=== PATIENT | female | born 1935 | race Caucasian/White ===

== ENCOUNTER → 2021-10-06 18:00 | Outpatient (REF) | payer MEDICARE, BC, SELFPAY ==
--- NOTE | 2021-10-06 18:08 | CA_ITS ---
Transthoracic Echocardiogram Patient (Last, First, Middle): Sally Wills, Gender: Female Date of : 1935 Age: 86 Procedure Date: 10/06/2021 Procedure Type: Transthoracic Echocardiogram Location: [place] Height: 154.94 cm Weight: 68.04 kg BSA: 1.67 m2 Heart Rate: bpm BP: 150 / 80 mmHg Rat Poisoner: VON Referring MD: Ting BARRON [facility]- Stock Replenisher: Mauro Arteaga MD Symptoms: HYPOXEMIA Study Quality: Adequate ECG Rhythm: Sinus Conclusions: - 1. Hyperdynamic LV systolic function with LVEF of greater than 70% with impaired relaxation filling pattern suggestion of elevated filling pressures 2. Mildly dilated left atrium 3. Uicq-fm-nsuqxidq aortic stenosis 4. Vifi-fc-kowvogwe elevation of right ventricular systolic pressure 5. No gross pericardial effusion Findings Left Ventricle Normal left ventricular cavity size. There is normal left ventricular wall thickness. The left ventricular systolic function is hyperdynamic. The visually estimated ejection fraction is >70%. Spectral Doppler is indicative of an impaired relaxation filling pattern. Elevated filling pressures. E/E prime ratio is >15, consistent with elevated filling pressures. Right Ventricle Normal right ventricular cavity size and systolic function. Atria The left atrium is mildly dilated. There is no evidence of interatrial shunt. The right atrium is normal in size. Aortic Valve There is mild calcification of the aortic valve. There is mild thickening of the aortic valve. There is mild to moderate aortic valve stenosis. The mean gradient is 20 mmHg. The aortic valve area is 1.62 cm2. There is trace (trivial) aortic valve regurgitation. Mitral Valve There is mild anterior and posterior mitral leaflet thickening. There is trace mitral valve regurgitation. There is no mitral valve stenosis. Pulmonic Valve The pulmonic valve is likely normal. There is trace pulmonic valve regurgitation. Tricuspid Valve There is mild tricuspid valve regurgitation. Normal right atrial pressure. Mild to moderate pulmonary hypertension is present. Great Vessels All visible segments of the aorta are normal in size. The pulmonary artery was not well visualized. Small plaque is seen in the sino tubular ridge. Venous The inferior vena cava is normal in size and collapses greater than 50% with inspiration. Pericardium/Pleural There is no evidence of pericardial effusion. Prior Study Comparison No prior study available for comparison. Measurements 2D Linear Measurements IVSd: 1.06 0.6-0.9/0.6-1.0 cm LVIDd: 4.22 3.9-5.3/4.2-5.9 cm LVIDd Index: 2.53 2.4-3.2/2.2-3.1 cm/m2 LVIDs: 2.10 2.0-3.6 cm LVPWd: 0.79 0.7-1.1 cm LA Diam: 3.30 2.7-3.8/3.0-4.0 cm LAIDs Index: 1.98 1.5-2.3 cm/m2 LV Mass: 154.78 67-162/88-224 g LV Mass Index: 92.68 43-95/49-115 g/m2 LVOT Diam: 2.30 3.0+(-)1.3 cm 2D Systolic Function EF 4C: 71.50 >55% EF 2C: 70.80 >55% EF BiP: 71.30 >55% Mitral Valve MV Pk E: 1.04 MV PK A: 1.04 MV Decel Time: 206.00 E/A: 1.00 E'Lateral: 6.20 E'Medial: 4.24 E/E' Med: 24.50 E/E' Lat: 16.80 PHT: 60.00 MVA PHT: 3.67 Decel [place]: 5.06 Aortic Valve AoV Pk Bari: 3.11 AoV Mn Bari: 2.11 AoV VTI: 0.73 AoV Pk Grad: 39.00 Aov Mn Grad: 20.00 MARIBEL Cont.VTI: 1.62 LVOT LVOT Pk Bari: 1.12 LVOT Mn Bari: 0.79 LVOT VTI: 0.28 LVOT Pk Grad: 5.00 LVOT Mn Grad: 3.00 LVOT Diam: 2.30 LVOT Area: 4.15 Diastolic Function MV Pk E: 1.04 MV Pk A: 1.04 E/A: 1.00 E'Medial: 4.24 E/E' Med: 24.50 E' Laterial: 6.20 E/E' Lat: 16.80 Right Ventricle TAPSE (mm): 19.60 TVS' Bari: 2.90 Tricuspid Valve TR Pk Bari: 3.28 TR Pk Grad: 43.00 RA Press: 3.00 RVSP: 46.00 Great Vessels Aorta Sinus of Valsalva: 2.95 2.0-3.[address] [place]: 2.23 1.7-3.4 cm Ao Asc: 3.10 2.1-3.4 cm Ao Arch: 3.00 Updated in Other Vendor System with Status of Final Mauro Arteaga MD electronically signed on 10/07/2021 9:15:37 AM with status of Final
== END ==
LOC: HO.CARD 18:00
PROVIDERS: Visit Provider Nurse Practitioner
DX: R09.02 Hypoxemia (principal)
CPT/HCPCS: 93306

== ENCOUNTER → 2022-11-17 15:03 | Outpatient (REF) | payer MEDICARE, BC, SELFPAY ==
--- NOTE | 2022-11-17 15:07 | CA_ITS ---
Transthoracic Echocardiogram Patient (Last, First, Middle): Sally Wills, Gender: Female Date of : 1935 Age: 87 Procedure Date: 11/17/2022 Procedure Type: Transthoracic Echocardiogram Location: [place] Height: 154.94 cm Weight: 68.04 kg BSA: 1.67 m2 Heart Rate: 69 bpm BP: 135 / 80 mmHg City Comptroller: CARLOS Referring MD: Cristel WICK Symptoms: AVS I35.0 Study Quality: Adequate ECG Rhythm: Sinus Conclusions: - The left ventricular systolic function is hyperdynamic. The visually estimated ejection fraction is >70%. - There is moderate to severe aortic valve stenosis. Findings Left Ventricle Normal left ventricular cavity size. The left ventricular systolic function is hyperdynamic. The visually estimated ejection fraction is >70%. There is no evidence of regional wall motion abnormalities. Diastolic function is indeterminate on the basis of available data. There is moderate septal asymmetric hypertrophy. Right Ventricle Normal right ventricular cavity size and systolic function. Atria Both atria are normal in size. Aortic Valve There is moderate calcification of the aortic valve. There is moderate to severe aortic valve stenosis. The peak aortic velocity is 3.81 m/s with a calculated peak gradient of 58 mmHg. The mean gradient is 37 mmHg. The aortic valve area is 0.77 cm2. There is mild aortic valve regurgitation. Dimensionless index 0.34. Stroke volume index 41ml/m2. Mitral Valve There is mild anterior mitral leaflet thickening. There is mild mitral annular calcification. There is mild mitral valve regurgitation. There is no mitral valve stenosis. Pulmonic Valve The pulmonic valve is likely normal. Tricuspid Valve Normal tricuspid valve structure. There is mild tricuspid valve regurgitation. There is no evidence of pulmonary hypertension. Great Vessels The asc aorta is normal in size. Venous The inferior vena cava is normal in size and collapses greater than 50% with inspiration. Pericardium/Pleural There is no evidence of pericardial effusion. Prior Study Comparison Changes noted compared to prior study dated: 10/06/2021. Progression of aortic valve stenosis. Measurements 2D Linear Measurements IVSd: 1.35 0.6-0.9/0.6-1.0 cm LVIDd: 3.61 3.9-5.3/4.2-5.9 cm LVIDd Index: 2.16 2.4-3.2/2.2-3.1 cm/m2 LVIDs: 2.06 2.0-3.6 cm LVPWd: 0.88 0.7-1.1 cm LA Diam: 3.60 2.7-3.8/3.0-4.0 cm LAIDs Index: 2.16 1.5-2.3 cm/m2 LV Mass: 157.79 67-162/88-224 g LV Mass Index: 94.49 43-95/49-115 g/m2 LVOT Diam: 1.60 3.0+(-)1.3 cm 2D Systolic Function EF 4C: 57.90 >55% EF 2C: 56.70 >55% EF BiP: 55.80 >55% Mitral Valve MV Pk E: 0.88 MV PK A: 1.13 MV Decel Time: 312.00 E/A: 0.80 E'Lateral: 5.44 E'Medial: 3.05 E/E' Med: 28.80 E/E' Lat: 16.10 PHT: 92.00 MVA PHT: 2.39 Decel [place]: 2.81 Aortic Valve AoV Pk Bari: 3.81 AoV Mn Bari: 2.92 AoV VTI: 0.90 AoV Pk Grad: 58.00 Aov Mn Grad: 37.00 MARIBEL Cont.VTI: 0.77 AI Pk Bari: 3.52 AI [place]: 2.37 LVOT LVOT Pk Bari: 1.35 LVOT Mn Bari: 1.10 LVOT VTI: 0.34 LVOT Pk Grad: 7.00 LVOT Mn Grad: 5.00 LVOT Diam: 1.60 LVOT Area: 2.01 Diastolic Function MV Pk E: 0.88 MV Pk A: 1.13 E/A: 0.80 E'Medial: 3.05 E/E' Med: 28.80 E' Laterial: 5.44 E/E' Lat: 16.10 Right Ventricle TAPSE (mm): 17.30 TVS' Bari: 12.60 Tricuspid Valve TR Pk Bari: 2.49 TR Pk Grad: 25.00 RA Press: 3.00 RVSP: 28.00 Great Vessels Aorta Sinus of Valsalva: 2.90 2.0-3.5 cm Ao Asc: 3.20 2.1-3.4 cm Pulmonary Valve PV Pk Bari: 1.11 Peak PV Grad: 5.00 Updated in Other Vendor System with Status of Final Hans Reyes MD electronically signed on 11/18/2022 11:03:57 AM with status of Final
== END ==
LOC: HO.CARD 15:03
PROVIDERS: PCP Physician Assistant; Visit Provider Physician Assistant
DX: I35.0 Nonrheumatic aortic (valve) stenosis (principal)
CPT/HCPCS: 93306

== ENCOUNTER 2022-11-29 15:10 | Outpatient (REF) | payer MEDICARE, BC, SELFPAY ==
--- NOTE | ~2022-11-29 | XR_ITS ---
EXAMINATION: XR LUMBOSACRAL SPINE WITH OBLIQUES CLINICAL INFORMATION: Postlaminectomy syndrome COMPARISON: None available. TECHNIQUE: AP, both oblique, and lateral views of the lumbar spine. Lateral flexion and extension views. FINDINGS: L4-S1 fusion hardware appears intact. There is severe degenerative disc disease with marked dextroconvex scoliosis and right anterolateral listhesis at L3-L4. No acute fracture is evident although the angulation and rotation limits assessment. No significant change between the lateral flexion and extension views. XR/XR lumbar spine 6V w bending IMPRESSION: 1. L4-S1 fusion hardware appears intact. No obvious acute fracture. 2. Severe degenerative disc disease with marked dextroconvex scoliosis and right anterolateral listhesis at L3-L4. Given the limitations and the absence of prior comparison studies, CT is suggested for further evaluation.
== END 2022-11-29 15:11 | disposition home or self-care (01) ==
LOC: HO.XRAY 15:10
PROVIDERS: PCP Physician Assistant; Visit Provider Internal Medicine
DX: M96.1 Postlaminectomy syndrome, not elsewhere classified (principal); M54.50 Low back pain, unspecified; G89.29 Other chronic pain; F11.20 Opioid dependence, uncomplicated; Z79.899 Other long term (current) drug therapy
CPT/HCPCS: 72114; 99202

== ENCOUNTER 2023-01-18 10:46 | Outpatient (REF) | payer MEDICARE, BC, SELFPAY ==
--- NOTE | ~2023-01-18 | MR_ITS ---
EXAMINATION: MR LUMBAR SPINE WITHOUT CONTRAST CLINICAL INFORMATION: Back pain and right greater than left leg pain. COMPARISON: X-ray dated 11/29/2022. TECHNIQUE: Multiplanar, multisequence imaging was obtained. FINDINGS: VERTEBRAL BODIES AND PARASPINAL STRUCTURES: The patient is status post posterior lumbar instrumented fusion from the L4 through S1 levels with a solid arthrodesis evident across the interbody spaces. Mild anterior subluxation noted at L5-S1. There also appears to be a transpedicular screw traversing into the right aspect of the L3 vertebra. No arthrodesis is evident at the L3-L4 level. There is severe degenerative disc disease with a retrosubluxation at L3-L4 and at the L2-L3 level. There is chronic anterior wedge deformity of the L3 vertebral body with moderate loss of vertebral body height. Iqlw-ml-tvkzegzk endplate edematous changes are noted at the L2-L3 and L3-L4 levels. The remainder of the marrow signal is within normal limits. There is a rightward curvature of the lumbar spine centered at L1-L2 level and a leftward curvature centered at the L4 level. Mild degenerative changes of the sacroiliac joints partially visualized. The paraspinal soft tissues are unremarkable. An incidental 3 cm cyst arises from the lower pole of the left kidney, for which no further imaging followup is indicated. CONUS MEDULLARIS AND CAUDA EQUINE: The distal cord, conus tip, and cauda equina nerve roots are normal. SPINAL LEVELS: T12-L1: No disc pathology. Gxfk-mf-qfrkticl hypertrophic facet arthropathy. No significant central canal stenosis or foraminal narrowing. L1-L2: Mild disc bulge and txcn-xo-gbcgkntp facet arthropathy minimally encroaching upon the central canal. Patent foramina. L2-L3: Severe degenerative endplate changes and loss of disc height with a broad-based disc bulge and endplate spurring. Findings in conjunction with exuberant facet arthropathy result in severe thecal sac compression. Findings also in part related to dorsal epidural fat prominence. Moderate central canal stenosis and left foraminal narrowing with milder right foraminal encroachment from bulging disc and bony spurring. Posterolateral endplate spurring contacts the exiting left L2 nerve root. L3-L4: Severe degenerative endplate changes and disc space narrowing with a retrosubluxation encroaching upon the ventral epidural space. Mild central canal stenosis and hypertrophic facet arthropathy. Moderate left foraminal narrowing and severe right foraminal encroachment due to chronic proliferative bony changes. L4-L5: Solid arthrodesis with posterior fusion hardware. No central canal stenosis. Moderate right foraminal narrowing due to proliferative bony changes. L5-S1: Posterior fusion hardware in place and anterolisthesis. Decompressive laminectomy. No central canal stenosis. Mild foraminal narrowing. MR/MR lumbar spine wo con IMPRESSION: 1. Status post posterior lumbar instrumented fusion from the L4 through S1 levels with a solid arthrodesis. Moderate right foraminal narrowing at the L4-L5 level. 2. Severe spondylosis at the L2-L3 level with moderate central canal stenosis and severe thecal sac compression, in part related to dorsal epidural fat prominence. Moderate left foraminal narrowing. Posterolateral endplate spurring contacts the exiting left L2 nerve root. 3. Severe degenerative disc disease at the L3-L4 level with mild central canal stenosis. Xxanvmoh-yo-vjyvkf foraminal narrowing, worse on the right side due to chronic proliferative bony changes. Screw on the right side traverses into the right L3 vertebral body. Assessment for osseous fusion changes limited at this level. 4. Chronic moderate anterior wedge deformity of the L3 vertebral body with oure-er-fnnlhvkr endplate edema. Degenerative curvature of the lumbar spine as described.
== END 2023-01-18 10:47 | disposition home or self-care (01) ==
LOC: HO.MRI 10:46
PROVIDERS: PCP Physician Assistant; Visit Provider Internal Medicine
DX: M54.16 Radiculopathy, lumbar region (principal)
CPT/HCPCS: 72148

== ENCOUNTER 2023-01-24 15:04 | Outpatient (AMB) | payer MEDICARE, BC, SELFPAY ==
--- NOTE | 2023-01-24 15:07 | MHC.OFFVIS ---
Intake Vital Signs 01/24/23 15:10 Height 5 ft 1 in Weight 154 lb BMI 29.1 BP 126/84 Blood Pressure Location Lt brachial Position Sitting Respiration 14 Pulse 80 Pulse Source Pulse Oximeter Pulse Oximetry (%) 90 L Oxygen Delivery Method Room Air Intake Visit Reasons: Follow Up/X-Ray Results Allergies No Known Allergies Allergy (Verified 01/24/23 15:10) Medication List - Last Reconciled 01/24/23 by Kirsty Castaneda LPN albuterol sulfate 90 mcg/actuation 2 puffs inhalation Q6H PRN aspirin (Adult Aspirin Regimen) 81 mg PO DAILY atorvastatin 10 mg PO BEDTIME buprenorphine 20 mcg/hour 1 patch transdermal Q7D xijkaaxmlgw-urdmmxqzh-fleeirri 100-62.5-25 mcg (Trelegy Ellipta) 1 inh inhalation DAILY gabapentin 300 mg PO TID levothyroxine 50 mcg PO DAILY metoprolol succinate ER 12.5 mg PO DAILY omeprazole 20 mg PO DAILY oxycodone 10 mg PO TID PRN quetiapine 50 mg PO Q6H PRN venlafaxine ER 225 mg PO BEDTIME HPI Follow Up/X-Ray Results HPI Details 87-year-old female presenting today for a follow-up review of x-ray result. She still reports back pain. Her pain is worse in the morning. She has weakness in her back and has difficulty standing and walking. She states that her pain is affecting her daily lifestyle. The patient?s daughter states that the patient is unable to reach the bathroom without her walker. Her last visit to the [facility] was in 2020. She had an Moon percutaneous spinal cord stimulator trial in 2019 that provided 50?60% relief. She is currently on baby aspirin. She has a moderate aortic stenosis and has been following up with cardiology. [facility] Medical History (Updated 11/29/22 @ 15:49 by Miguel Peña MD) Chronic kidney disease, stage 3 Chronic low back pain Chronic obstructive lung disease Hyperlipidemia Impaired mobility Low back pain Mild major depression Moderate aortic valve stenosis Opioid dependence Seasonal allergic rhinitis Transient cerebral ischemia Review of Systems Const All systems reviewed & are unremarkable except as noted in HPI and below Physical Exam Vital Signs: Last Vital Signs Pulse 80 01/24/23 15:10 Resp 14 01/24/23 15:10 BP 126/84 01/24/23 15:10 Pulse Ox 90 L 08/28/23 15:10 Oxygen Delivery Method Room Air 01/24/23 15:10 BMI result Body Mass Index 29.1 General: Appears afebrile. Alert and oriented. Mood and affect appropriate. Follows and participates in conversation appropriately. Respiratory effort is unlabored. Able to transition from sit to stand unassisted. Ambulates with bilaterally normal heel strike and toe off. Results Reviewed Results Reviewed: 11/29/22: XR LUMBOSACRAL SPINE WITH OBLIQUES FINDINGS: L4-S1 fusion hardware appears intact. There is severe degenerative disc disease with marked dextroconvex scoliosis and right anterolateral listhesis at L3-L4. No acute fracture is evident although the angulation and rotation limits assessment. No significant change between the lateral flexion and extension views. IMPRESSION: 1. L4-S1 fusion hardware appears intact. No obvious acute fracture. 2. Severe degenerative disc disease with marked dextroconvex scoliosis and right anterolateral listhesis at L3-L4. Given the limitations and the absence of prior comparison studies, CT is suggested for further evaluation. 01/18/23: MR LUMBAR SPINE WITHOUT CONTRAST FINDINGS: VERTEBRAL BODIES AND PARASPINAL STRUCTURES: The patient is status post posterior lumbar instrumented fusion from the L4 through S1 levels with a solid arthrodesis evident across the interbody spaces. Mild anterior subluxation noted at L5-S1. There also appears to be a transpedicular screw traversing into the right aspect of the L3 vertebra. No arthrodesis is evident at the L3-L4 level. There is severe degenerative disc disease with a retrosubluxation at L3-L4 and at the L2-L3 level. There is chronic anterior wedge deformity of the L3 vertebral body with moderate loss of vertebral body height. Ncte-ce-iizbpmwe endplate edematous changes are noted at the L2-L3 and L3-L4 levels. The remainder of the marrow signal is within normal limits. There is a rightward curvature of the lumbar spine centered at L1-L2 level and a leftward curvature centered at the L4 level. Mild degenerative changes of the sacroiliac joints partially visualized. The paraspinal soft tissues are unremarkable. An incidental 3 cm cyst arises from the lower pole of the left kidney, for which no further imaging followup is indicated. CONUS MEDULLARIS AND CAUDA EQUINE: The distal cord, conus tip, and cauda equina nerve roots are normal. SPINAL LEVELS: T12-L1: No disc pathology. Rvbj-pa-bnbgqyjh hypertrophic facet arthropathy. No significant central canal stenosis or foraminal narrowing. L1-L2: Mild disc bulge and fgwk-et-vuiobihy facet arthropathy minimally encroaching upon the central canal. Patent foramina. L2-L3: Severe degenerative endplate changes and loss of disc height with a broad-based disc bulge and endplate spurring. Findings in conjunction with exuberant facet arthropathy result in severe thecal sac compression. Findings also in part related to dorsal epidural fat prominence. Moderate central canal stenosis and left foraminal narrowing with milder right foraminal encroachment from bulging disc and bony spurring. Posterolateral endplate spurring contacts the exiting left L2 nerve root. L3-L4: Severe degenerative endplate changes and disc space narrowing with a retrosubluxation encroaching upon the ventral epidural space. Mild central canal stenosis and hypertrophic facet arthropathy. Moderate left foraminal narrowing and severe right foraminal encroachment due to chronic proliferative bony changes. L4-L5: Solid arthrodesis with posterior fusion hardware. No central canal stenosis. Moderate right foraminal narrowing due to proliferative bony changes. L5-S1: Posterior fusion hardware in place and anterolisthesis. Decompressive laminectomy. No central canal stenosis. Mild foraminal narrowing. IMPRESSION: 1. Status post posterior lumbar instrumented fusion from the L4 through S1 levels with a solid arthrodesis. Moderate right foraminal narrowing at the L4-L5 level. 2. Severe spondylosis at the L2-L3 level with moderate central canal stenosis and severe thecal sac compression, in part related to dorsal epidural fat prominence. Moderate left foraminal narrowing. Posterolateral endplate spurring contacts the exiting left L2 nerve root. 3. Severe degenerative disc disease at the L3-L4 level with mild central canal stenosis. Pmqonxli-mv-qoqscd foraminal narrowing, worse on the right side due to chronic proliferative bony changes. Screw on the right side traverses into the right L3 vertebral body. Assessment for osseous fusion changes limited at this level. 4. Chronic moderate anterior wedge deformity of the L3 vertebral body with uwau-kd-jshddpgj endplate edema. Degenerative curvature of the lumbar spine as described. Assessment & Plan Assessment & Plan (1) Lumbar postlaminectomy syndrome: Code(s): M96.1 - Postlaminectomy syndrome, not elsewhere classified Plan We had an extended discussion about repeating and trying with various types of spinal cord stimulators as a potential treatment option. The patient is amenable to repeat the trial of spinal cord stimulator. Will place a referral for psychology clearance. Once we have received psychology clearance we will plan for trial of Nevro spinal cord stimulator placement . The patient will receive a call from [facility] for the psychology assessment. For time being, advised to continue current medication regime for pain management. Scribed for Dr. Peña by Wally Li, medical billing and coding instructor, on 01/24/2023. I, Dr. Peña, have personally reviewed and agree with the information entered by the scribe. Coding Level of Care Code Est Pt Level 3 (69040) Diagnoses Lumbar postlaminectomy syndrome M96.1
[2023-01-24 15:10] VITALS: BP 126/84; PULSE 80; RESP 14; O2SAT 90; BMI 29.1
== END 2023-01-24 15:51 | disposition home or self-care (01) ==
PROVIDERS: PCP Physician Assistant; Visit Provider Internal Medicine
DX: M96.1 Postlaminectomy syndrome, not elsewhere classified (principal)
CPT/HCPCS: 99213

== ENCOUNTER → 2023-01-24 15:04 | Outpatient (BNVA) | payer MEDICARE, BC, SELFPAY | PROVIDERS: PCP Physician Assistant; Visit Provider Internal Medicine | DX: M96.1 Postlaminectomy syndrome, not elsewhere classified (principal) | CPT/HCPCS: 99212 ==

== ENCOUNTER 2024-03-28 09:52 | Outpatient (AMB) | payer MEDICARE, BC, SELFPAY ==
--- NOTE | 2024-03-28 09:56 | MHC.OFFVIS ---
Vital Signs 03/28/24 09:57 Height 5 ft 1 in Weight 151 lb BMI 28.5 BP 114/69 Blood Pressure Location Lt brachial Position Sitting Respiration 16 Pulse 84 Pulse Source Pulse Oximeter Pulse Oximetry (%) 91 L Oxygen Delivery Method Room Air Intake Visit Reasons: FU chronic back pain Allergies No Known Allergies Allergy (Verified 04/16/24 09:16) Medication List - Last Reconciled 03/28/24 by Kirsty Castaneda LPN albuterol sulfate 90 mcg/actuation 2 puffs inhalation Q6H PRN aspirin (Adult Aspirin Regimen) 81 mg PO DAILY atorvastatin 10 mg PO BEDTIME buprenorphine 20 mcg/hour 1 patch transdermal Q7D owvzrqigksq-ueuunezfz-nlwdvegc 100-62.5-25 mcg (Trelegy Ellipta) 1 inh inhalation DAILY gabapentin 300 mg PO TID levothyroxine 50 mcg PO DAILY metoprolol succinate ER 12.5 mg PO DAILY omeprazole 20 mg PO DAILY oxycodone 10 mg PO TID PRN quetiapine 50 mg PO Q6H PRN venlafaxine ER 225 mg PO BEDTIME HPI HPI FU chronic back pain: Details: 88-year-old female who presents today to the office for a follow up of chronic back pain. She reports pain in her lower back and sacroiliac joint region. She has some weakness and buckling in her leg with walking, more on the right side compared to the left side. She has previously received sacroiliac joint injections in [place], that have been helpful. She states that most of the injections in the past provided good relief. She had an Moon percutaneous spinal cord stimulator trial in 2019 that provided 50?60% relief. Her PA was approved in February 2023 for the nerve stimulation therapy but has to hold on the procedure due to cardiac issues. She states that since the last visit she had valve replacement and pacemaker surgery placed. She has no history of DM. She has a history of HTN and is currently taking medications. Her blood pressure reading remains in low or optimal range due to medication. She is currently on baby aspirin. [facility] Medical History (Updated 04/06/24 @ 14:20 by Summer Ruano, VOICE INTERCEPT TECHNICIAN, SILVERWARE ETCHER) Hyperlipidemia Seasonal allergic rhinitis Low back pain Chronic low back pain Chronic obstructive lung disease Moderate aortic valve stenosis Transient cerebral ischemia Impaired mobility Chronic kidney disease, stage 3 Opioid dependence Mild major depression Review of Systems Const All systems reviewed & are unremarkable except as noted in HPI and below Physical Exam Vital Signs: Last Vital Signs Pulse 84 03/28/24 09:57 Resp 16 03/28/24 09:57 BP 114/69 03/28/24 09:57 Pulse Ox 91 L 03/28/24 09:57 Oxygen Delivery Method Room Air 03/28/24 09:57 BMI result Body Mass Index 28.5 General: Appears afebrile. Alert and oriented. Mood and affect appropriate. Follows and participates in conversation appropriately. Respiratory effort is unlabored. Able to transition from sit to stand unassisted. Ambulates with bilaterally normal heel strike and toe off. There is tenderness on palpation overlying the bilateral sacroiliac joint. Right more than left She is very stiff and difficult to perform lumbar or hip range of motion. Sacroiliac joint provocation tests were not performed. Results Reviewed Results Reviewed: No imaging is available for review. Assessment & Plan Assessment & Plan (1) Sacroiliac joint pain: Code(s): M53.3 - Sacrococcygeal disorders, not elsewhere classified Category: Medical (2) Lumbar postlaminectomy syndrome: Code(s): M96.1 - Postlaminectomy syndrome, not elsewhere classified Category: Medical Plan Multifactorial pain. I think her symptoms at this time are mostly secondary to sacroiliac joint dysfunction in setting of prior lumbar spine fusion. We did discuss spinal cord stimulation as a possible option but given her age and comorbidities we will try our best to avoid this and manage her pain with injections to the extent possible. I think diagnostic sacroiliac joint injections would be an adequate next step based on her history and physical exam findings. We will schedule her for bilateral diagnostic sacroiliac joint injection. Discussed the risks and benefits of the procedure with the patient in detail. All questions were answered. The patient is on board with the plan. Justification for interventional therapy: ? Patient with average pain > 6/10 ? Patient has exhausted conservative therapy. ? Patient unable to tolerate physical therapy due to pain. ? She has previously received sacroiliac joint injections in [place], that have been helpful. . Patient has a good understanding of their pain condition and has appropriate mental and social support Scribed for Dr. Peña by Wally Li, medical assistant instructor, on 03/28/2024. I, Dr. Peña, have personally reviewed and agree with the information entered by the scribe. Coding Level of Care Code Est Pt Level 4 (28549) Diagnoses Sacroiliac joint pain M53.3 Lumbar postlaminectomy syndrome M96.1
[2024-03-28 09:57] VITALS: BP 114/69; PULSE 84; RESP 16; O2SAT 91; BMI 28.5
== END 2024-03-28 10:28 | disposition home or self-care (01) ==
LOC: HO.PMC 09:52
PROVIDERS: PCP Physician Assistant; Visit Provider Internal Medicine
DX: M53.3 Sacrococcygeal disorders, not elsewhere classified (principal); M96.1 Postlaminectomy syndrome, not elsewhere classified
CPT/HCPCS: 99214

== ENCOUNTER → 2024-03-28 09:52 | Outpatient (BNVA) | payer MEDICARE, BC, SELFPAY | PROVIDERS: PCP Physician Assistant; Visit Provider Internal Medicine | DX: M96.1 Postlaminectomy syndrome, not elsewhere classified (principal); M53.3 Sacrococcygeal disorders, not elsewhere classified; Z79.82 Long term (current) use of aspirin | CPT/HCPCS: 99212 ==

== ENCOUNTER 2024-04-12 06:18 | Outpatient (REF) | payer MEDICARE, BC, SELFPAY | END 2024-04-12 06:19 | disposition home or self-care (01) | LOC: CF 06:18 | PROVIDERS: Visit Provider Internal Medicine | DX: M53.3 Sacrococcygeal disorders, not elsewhere classified (principal) | CPT/HCPCS: 27096; J2003; J2795 ==

== ENCOUNTER 2024-04-12 10:54 | Outpatient (AMB) | payer MEDICARE, BC, SELFPAY ==
[2024-04-12 10:59] VITALS: BP 132/78; PULSE 73; O2SAT 92
--- NOTE | 2024-04-12 10:59 | MHC.OFFVIS ---
Vital Signs 04/12/24 10:59 04/12/24 11:32 BP 132/78 147/90 H Blood Pressure Location Lt brachial Rt brachial Position Sitting Sitting Pulse 73 75 Pulse Source Pulse Oximeter Pulse Oximeter Pulse Oximetry (%) 92 94 Oxygen Delivery Method Room Air Room Air Intake Visit Reasons: Ralph Dx SIJ inj Allergies No Known Allergies Allergy (Verified 03/28/24 09:59) HPI HPI Ralph Dx SIJ inj: Details: Patient presents for scheduled procedure. Denies any recent cough, cold, infection, fever or other significant changes in medical history since last office visit. [facility] Medical History (Updated 04/06/24 @ 14:20 by Summer Ruano, WASH MILL OPERATOR, SOLDERER ASSEMBLER) Hyperlipidemia Seasonal allergic rhinitis Low back pain Chronic low back pain Chronic obstructive lung disease Moderate aortic valve stenosis Transient cerebral ischemia Impaired mobility Chronic kidney disease, stage 3 Opioid dependence Mild major depression Physical Exam Vital Signs: Last Vital Signs Pulse 73 04/12/24 10:59 BP 132/78 04/12/24 10:59 Pulse Ox 92 04/12/24 10:59 Oxygen Delivery Method Room Air 04/12/24 10:59 Office Procedures AMB Joint Injection/Aspiration Joint Injection/Aspiration Details: Diagnostic Sacroiliac Joint Injection, bilateral The procedure, its benefits, and its risks were explained and written informed consent was obtained from the patient. Immediately prior to starting the procedure, a time-out safety check was conducted. The patient's identification, procedure name, procedure site, and procedure laterality were confirmed with the patient. ? Patient was placed prone on the fluoroscopy table and the lumbosacral area was prepped using ChloraPrep and draped with sterile drapein standard fashion. The C-arm was rotated in a contralateral oblique fashion until the medial border of the iliac crest no longer foreshadowed the posterior sacroiliac joint line. The skin and subcutaneous tissue was anesthetized using 1 mL of 0.75% plain lidocaine with 1.5-inch 25-gauge needle in the middle region of the joint line.?A 3.5-inch 22-gauge spinal needle with small bend on the tip was slowly advanced towards the joint line, coaxial to the x-ray beam. Once bony content was obtained, the needle was easily slid into the intra-articular space.? Intra-articular needle position was confirmed using lateral fluoroscopy.? A total volume of 2.5mL of solution containing 0.5% of ropivacaine was injected intra-articularly. The stylet was reinserted and needle was removed. The patient tolerated the procedure well. Patient denied any lower extremity weakness or numbness. Patient was observed for 30 min and was discharged after fulfilling the standard discharge criteria. Coding 74504 - Sacroiliac (Bilateral) Procedure code (CPT) selection complete Assessment & Plan Assessment & Plan (1) Sacroiliac joint pain: Code(s): M53.3 - Sacrococcygeal disorders, not elsewhere classified Category: Medical Plan Patient is status post bilateral diagnostic sacroiliac joint injections. Patient tolerated procedure well and was discharged home in stable condition with discharge instructions. All questions were answered. We will follow-up via telephone or in clinic to assess response to therapy. A follow-up appointment was made during today's visit. Orders: Orders FL guidance in treatment room Today M53.3 - Sacrococcygeal disorders, not elsewhere classified Coding Level of Care Code Procedure Only Diagnoses Sacroiliac joint pain M53.3 CPT Codes Coding - Joint 9: 00097 - Sacroiliac ([id number])
[2024-04-12 11:32] VITALS: BP 147/90; PULSE 75; O2SAT 94
== END 2024-04-12 11:33 | disposition home or self-care (01) ==
LOC: HO.PMCPRC 10:54
PROVIDERS: PCP Physician Assistant; Visit Provider Internal Medicine
DX: M53.3 Sacrococcygeal disorders, not elsewhere classified (principal)
CPT/HCPCS: 27096

== ENCOUNTER 2024-04-16 09:11 | Outpatient (AMB) | payer MEDICARE, BC, SELFPAY ==
--- NOTE | 2024-04-16 09:14 | MHC.OFFVIS ---
Vital Signs 04/16/24 09:16 Height 5 ft 1 in Weight 151 lb BMI 28.5 BP 120/68 Blood Pressure Location Lt brachial Position Sitting Respiration 16 Pulse 78 Pulse Source Pulse Oximeter Pulse Oximetry (%) 91 L Oxygen Delivery Method Room Air Intake Visit Reasons: s/p denny Dx SIJ inj Allergies No Known Allergies Allergy (Verified 04/16/24 09:16) Medication List - Last Reconciled 04/16/24 by Kirsty Castaneda LPN albuterol sulfate 90 mcg/actuation 2 puffs inhalation Q6H PRN aspirin (Adult Aspirin Regimen) 81 mg PO DAILY atorvastatin 10 mg PO BEDTIME buprenorphine 20 mcg/hour 1 patch transdermal Q7D xbhsgtvykqy-buebilars-akkkewzp 100-62.5-25 mcg (Trelegy Ellipta) 1 inh inhalation DAILY gabapentin 300 mg PO TID levothyroxine 50 mcg PO DAILY metoprolol succinate ER 12.5 mg PO DAILY omeprazole 20 mg PO DAILY oxycodone 10 mg PO TID PRN quetiapine 50 mg PO Q6H PRN venlafaxine ER 225 mg PO BEDTIME HPI HPI s/p denny Dx SIJ inj: Details: 89-year-old female who presents today to the office for a status post bilateral diagnostic sacroiliac joint injection. The patient reports 80% relief following the procedure for 2 days. She reports mild improvement of pain on the first two days of injection and then the pain started bothering her again. She has a history of aortic stenosis and has a prosthetic valve. Past Procedure 04/12/2024: Diagnostic Sacroiliac Joint Injection, Bilateral: 80% relief for 2 days. [facility] Medical History (Updated 04/06/24 @ 14:20 by Summer Ruano, MERCHANDISE COLLECTOR, SUPERVISOR PASTRY) Hyperlipidemia Seasonal allergic rhinitis Low back pain Chronic low back pain Chronic obstructive lung disease Moderate aortic valve stenosis Transient cerebral ischemia Impaired mobility Chronic kidney disease, stage 3 Opioid dependence Mild major depression Review of Systems Const All systems reviewed & are unremarkable except as noted in HPI and below Physical Exam Vital Signs: Last Vital Signs Pulse 78 04/16/24 09:16 Resp 16 04/16/24 09:16 BP 120/68 04/16/24 09:16 Pulse Ox 91 L 04/16/24 09:16 Oxygen Delivery Method Room Air 04/16/24 09:16 BMI result Body Mass Index 28.5 General: Appears afebrile. Alert and oriented. Mood and affect appropriate. Follows and participates in conversation appropriately. Respiratory effort is unlabored. Able to transition from sit to stand unassisted. Ambulates with bilaterally normal heel strike and toe off. Office Procedures Therapeutic Injection Therapeutic Injection Details: The procedure, its benefits, and its risks were explained and written informed consent was obtained from the patient. Immediately prior to starting the procedure, a time-out safety check was conducted. The patient's identification, procedure name, procedure site, and procedure laterality were confirmed with the patient. Patient was placed prone on the fluoroscopy table and the lumbosacral area was prepped using ChloraPrep and draped with sterile drape in standard fashion. The C-arm was rotated in a contralateral oblique fashion until the medial border of the iliac crest no longer foreshadowed the posterior sacroiliac joint line. The skin and subcutaneous tissue was anesthetized using 1 mL of 0.75% plain lidocaine with 1.5-inch 25-gauge needle in the middle region of the joint line. A 3.5-inch 22-gauge spinal needle with small bend on the tip was slowly advanced towards the joint line, coaxial to the x-ray beam. Once bony content was obtained, the needle was easily slid into the intra-articular space. Intra- articular needle position was confirmed using lateral fluoroscopy. A total volume of 2.5mL of solution containing 30 mg Kenalog and rest 0.5% of ropivacaine was injected intra-articularly. The stylet was reinserted and needle was removed. The same procedure was repeated on the contralateral side. The patient tolerated the procedure well. Patient denied any lower extremity weakness or numbness. Patient was observed for 30 min and was discharged after fulfilling the standard discharge criteria. 54279-Tntsmyn Point Injection 1 or 2 sites All charges added?: Procedure code (CPT) selection complete Results Reviewed Results Reviewed: No imaging is available for review. Assessment & Plan Assessment & Plan (1) Sacroiliac joint pain: Code(s): M53.3 - Sacrococcygeal disorders, not elsewhere classified Category: Medical (2) Lumbar postlaminectomy syndrome: Code(s): M96.1 - Postlaminectomy syndrome, not elsewhere classified Category: Medical Plan I discussed my intention to find the minimum possible dose that would work to provide her longer term relief to minimize any adverse effects given her comorbidities. If she does not find benefit from the steroid injections for her severe SI joint pain, we will potentially consider cluneal nerve stimulation as a potential alternative and I discussed this with her and her daughter today as well. Discussed the risks and benefits of the procedure with the patient in detail. All questions were answered. The patient is on board with the plan. Justification for interventional therapy: ? Patient with average pain > 6/10 ? Patient has exhausted conservative therapy. ? Patient unable to tolerate physical therapy due to pain. ? Previous injection provided 80% relief for the duration of the anesthetic phase . Patient has a good understanding of their pain condition and has appropriate mental and social support. Scribed for Dr. Peña by Terrence Humphreys medical research scientist, on 04/16/2024.? I, Dr. Peña, have personally reviewed and agree with the information entered by the scribe. Coding Level of Care Code Est Pt Level 3 (82369) Diagnoses Sacroiliac joint pain M53.3 Lumbar postlaminectomy syndrome M96.1 CPT Codes Therapeutic Injection - Ther Injection 1: 86281-Jvzbhjz Point Injection 1 or 2 sites ([id number])
[2024-04-16 09:16] VITALS: BP 120/68; PULSE 78; RESP 16; O2SAT 91; BMI 28.5
== END 2024-04-16 09:47 | disposition home or self-care (01) ==
LOC: HO.PMC 09:11
PROVIDERS: PCP Physician Assistant; Visit Provider Internal Medicine
DX: M53.3 Sacrococcygeal disorders, not elsewhere classified (principal); M96.1 Postlaminectomy syndrome, not elsewhere classified
CPT/HCPCS: 99213

== ENCOUNTER → 2024-04-16 09:11 | Outpatient (BNVA) | payer MEDICARE, BC, SELFPAY | PROVIDERS: PCP Physician Assistant; Visit Provider Internal Medicine | DX: M53.3 Sacrococcygeal disorders, not elsewhere classified (principal); M96.1 Postlaminectomy syndrome, not elsewhere classified | CPT/HCPCS: 99212 ==

== ENCOUNTER 2024-05-03 06:13 | Outpatient (REF) | payer MEDICARE, BC, SELFPAY ==
--- NOTE | ~2024-05-03 | FL_ITS ---
EXAMINATION: FLUOROSCOPY GUIDANCE FOR NEEDLE PLACEMENT CLINICAL INFORMATION: M53.3 - Sacrococcygeal disorders, not elsewhere classified. COMPARISON: None available. TECHNIQUE: Fluoroscopy and 3 spot films provided. FINDINGS: [place] are seen overlying each SI joint. Partial visualization of lumbosacral spine posterior fixation hardware. FLUOROSCOPY TIME: 0.1 minutes. DOSE AREA PRODUCT: 0.57768 uGy-m2 (microgray-meter squared). FL/FL guidance in treatment room IMPRESSION: Fluoroscopy and spot films provided. Please see Dr. Summer Ruano's procedure note for complete details. Electronically signed by: Tyler Seals MD 06/27/2024 01:11 PM [facility]
--- OUTSIDE RECORDS SUMMARY | 2024-05-08 22:50 | XMS_ITS | Continuity of Care Document ---
Author Organization [facility] Address [address] [place] [address] Phone Care Team Providers Care Director Of Music Name Role Phone Field Neto FARRELL Unavailable Unavailable Allergies, Adverse Reactions, Alerts Substance Reaction Status Criticality No Known allergies Medications Medication Instructions Dosage Effective Dates (start - stop) Status Comments amlodipine 10 mg Tab - Active gabapentin 800 mg Tab take 1 tablet (800MG) by oral route 3 times every day 800 MG - Active CALCIUM (unknown strength) Not Available - Active Ambien 10 mg Tab - Active FISH OIL (unknown strength) Not Available - Active Procedures Procedure Date Copy Of Xrays No Charge Lumbosacral Spine 4+ Views OFFICE/OUTPATIENT VISIT, [facility] Advance Directives Directive Yes / No Effective Date File Name No Information Encounters Encounter Description Practice Location Reason(s) For Visit Diagnoses Date Provider Providers Copied on Encounter [facility], [address], [place], [place], [address], [place] tel:[phone] [facility] No Information 0-201 1 [address] [place]. [address], [address], [place], [place], [address] , [place]. tel:[phone] [facility], [address], [place], [place], [address], [place] tel:[phone] [facility] Spinal stenosis of lumbar region 2-201 1 [address] [place]. [address], [address], [place], [place], [address] , [place]. tel:[phone] OFFICE/OUTPA TIENT VISIT, [facility], [address], [place], [place], [address], [place] tel:[phone] [facility] back pain (chief complaint) BackacheLumbagoSpin al stenosis of lumbar regionRadiculitis, Thoracic or LumbarPostlaminecto my syndrome of lumbar region 0-201 1 [address] [place]. [address], [address], [place], [place], [address] , [place]. [phone] Referring Provider: Neto Greene, [address], [place], [address] . tel:[phone] Family History Family Member Type Diagnosis Age At Onset Problem (finding) Family history of hyper tension Problem (finding) Family history of Arthr itis Payers Payer name Insurance type Covered constitution party ID Authoriza tion(s) No Information Social History Type Description Quantity Date Captured Comments Sex Female Smoking Status No Information Chief Complaint And Reason For Visit No Information Reason For Referral Reason For Referral No Information Plan Of Treatment Date Type Action Status Referral Ordered: Lumbosacral Spine 4+ Views ordered History Of Present Illness Encounter Date Complaint History Of Prese nt Illness No Information Functional Status Date Functional Assessmen t No Information Instructions Date Instruction Additional Infor mation No Information Assessments Type Assessment Date No Information Patient Care Teams Name Effective Dates (start - stop) Status Members No Information
== END 2024-05-03 06:14 | disposition home or self-care (01) ==
LOC: CF 06:13
PROVIDERS: Visit Provider Internal Medicine
DX: M53.3 Sacrococcygeal disorders, not elsewhere classified (principal)
CPT/HCPCS: 27096; J2003; J2795; J3301; Q9967

== ENCOUNTER 2024-05-03 09:26 | Outpatient (AMB) | payer MEDICARE, BC, SELFPAY ==
--- NOTE | 2024-05-03 09:44 | A.OFFVIS_ITS ---
Vital Signs 05/03/24 09:54 05/03/24 10:38 BP 166/79 H 137/72 Blood Pressure Location Rt brachial Rt brachial Position Sitting Sitting Pulse 71 69 Pulse Source Pulse Oximeter Pulse Oximeter Pulse Oximetry (%) 93 90 L Oxygen Delivery Method Room Air Room Air Intake Visit Reasons: Ralph theraputic SIJ inj Allergies No Known Allergies Allergy (Verified 04/16/24 09:16) HPI HPI Ralph theraputic SIJ inj: Details: Patient presents for scheduled procedure. Denies any recent cough, cold, infection, fever or other significant changes in medical history since last office visit. [facility] Medical History (Updated 04/06/24 @ 14:20 by Summer Ruano, SHAREPOINT APPLICATION ARCHITECT, WELDER FITTER ARC) Hyperlipidemia Seasonal allergic rhinitis Low back pain Chronic low back pain Chronic obstructive lung disease Moderate aortic valve stenosis Transient cerebral ischemia Impaired mobility Chronic kidney disease, stage 3 Opioid dependence Mild major depression Physical Exam Vital Signs: Last Vital Signs Pulse 69 05/03/24 10:38 BP 137/72 05/03/24 10:38 Pulse Ox 90 L 05/03/24 10:38 Oxygen Delivery Method Room Air 05/03/24 10:38 Office Procedures AMB Joint Injection/Aspiration Joint Injection/Aspiration Details: Sacroiliac Joint Injection, Bilateral The procedure, its benefits, and its risks were explained and written informed consent was obtained from the patient. Immediately prior to starting the procedure, a time-out safety check was conducted. The patient's identification, procedure name, procedure site, and procedure laterality were confirmed with the patient. ? Patient was placed prone on the fluoroscopy table and the lumbosacral area was prepped using ChloraPrep and draped with sterile draped in standard fashion. The C-arm was rotated in a contralateral oblique fashion until the medial border of the iliac crest no longer foreshadowed the posterior sacroiliac joint line. The skin and subcutaneous tissue was anesthetized using 1 mL of 0.75% plain lidocaine with 1.5-inch 25-gauge needle in the middle region of the joint line.? A 3.5-inch 22-gauge spinal needle with small bend on the tip was slowly advanced towards the joint line, coaxial to the x-ray beam. Once bony content was obtained, the needle was easily slid into the intra-articular space.? Intra- articular needle position was confirmed using lateral fluoroscopy.? A total volume of 2.5mL of solution containing 30 mg Kenalog and rest 0.5% of ropivacaine was injected intra-articularly. The stylet was reinserted and needle was removed. The same procedure was repeated for the other side. The patient tolerated the procedure well. Patient denied any lower extremity weakness or numbness. Patient was observed for 30 min and was discharged after fulfilling the standard discharge criteria. Coding 61780 - Sacroiliac (bilateral) Procedure code (CPT) selection complete Assessment & Plan Assessment & Plan (1) Sacroiliac joint pain: Code(s): M53.3 - Sacrococcygeal disorders, not elsewhere classified Category: Medical Plan Patient is status post bilateral intraarticular therapeutic SI joint injections. Patient tolerated procedure well and was discharged home in stable condition with discharge instructions. All questions were answered. We will follow-up via telephone or in clinic to assess response to therapy. A follow-up appointment was made during today's visit. Orders: Orders FL guidance in treatment room 05/03/24 M53.3 - Sacrococcygeal disorders, not elsewhere classified Coding Level of Care Code Procedure Only Diagnoses Sacroiliac joint pain M53.3 CPT Codes Coding - Joint 9: 10512 - Sacroiliac ([id number])
[2024-05-03 09:54] VITALS: BP 166/79; PULSE 71; O2SAT 93
[2024-05-03 10:38] VITALS: BP 137/72; PULSE 69; O2SAT 90
--- OUTSIDE RECORDS SUMMARY | 2024-05-09 00:53 | XMS_ITS | Continuity of Care Document ---
Author Organization [facility] Address [address] [place] [address] Phone Care Team Providers Care Asphalt Raker Name Role Phone Field Neto FARRELL Unavailable [...] Lumbosacral Spine 4+ Views OFFICE/OUTPATIENT VISIT, [facility] Advance Directives Directive Yes / No Effective Date File Name No Information Encounters Encounter Description Practice Location Reason(s) For Visit Diagnoses Date Provider Providers Copied on Encounter [facility], [address], [place], [place], [id number], [place] tel:[phone] [facility] No Information 0-201 1 [address] [place]. [address], [address], [place], [place], [address] , [place]. tel:[phone] [facility], [address], [place], [place], [address], [place] tel:[phone] [facility] Spinal stenosis of lumbar region 2-201 1 [address] [place]. [address], [address], [place], [place], [address] , [place]. tel:[phone] OFFICE/OUTPA TIENT VISIT, [facility], [address], [place], [place], [address], [place] tel:[phone] [facility] back pain (chief complaint) BackacheLumbagoSpin al stenosis of lumbar regionRadiculitis, Thoracic or LumbarPostlaminecto my syndrome of lumbar region 0-201 1 [address] [place]. [address], [address], [place], [place], [address] , [place]. [phone] Referring Provider: Neto Greene, [address], [place], [address] . tel:[phone] Family History Family Member Type Diagnosis Age At Onset Problem (finding) Family history of hyper tension Problem (finding) Family history of Arthr itis Payers Payer name Insurance type Covered libertarian ID Authoriza tion(s) No Information Social History [...]
== END 2024-05-03 10:50 | disposition home or self-care (01) ==
LOC: HO.PMCPRC 09:26
PROVIDERS: PCP Physician Assistant; Visit Provider Internal Medicine
DX: M53.3 Sacrococcygeal disorders, not elsewhere classified (principal)
CPT/HCPCS: 27096

== ENCOUNTER 2024-06-01 08:34 | Outpatient (REF) | payer MEDICARE, BC, SELFPAY ==
--- NOTE | ~2024-06-01 | XR_ITS ---
CLINICAL HISTORY: M54.50 - Low back pain, unspecified Exam: Single lateral view of the lumbar spine. Comparison: MRI January 18, 2023 and radiographs November 29, 2022. Findings: Single lateral view of the lumbar spine is submitted. Surgical hardware from L4-S1 is grossly unchanged in position. Bony alignment is grossly unchanged with poor definition of the disc spaces from L3 through L5. Mild kyphosis within the mid to lower lumbar spine Impression: Grossly unchanged lateral view of the lumbar spine. This document has been electronically signed by: Ang Abdi MD on 06/02/2024 06:39:06
== END 2024-06-01 08:35 | disposition home or self-care (01) ==
LOC: HO.XRAY 08:34
PROVIDERS: PCP Physician Assistant; Visit Provider Internal Medicine
DX: M54.50 Low back pain, unspecified (principal); M53.3 Sacrococcygeal disorders, not elsewhere classified
CPT/HCPCS: 72020; 99212

== ENCOUNTER 2024-06-01 08:34 | Outpatient (AMB) | payer MEDICARE, BC, SELFPAY ==
--- OUTSIDE RECORDS SUMMARY | 2024-06-01 08:45 | XMS_ITS | Continuity of Care Document ---
Author Organization [facility] Address [address] [place] [address] Phone Care Team Providers Care Livestock Farm Workers Name Role Phone Field Neto FARRELL Unavailable [...] Charge Lumbosacral Spine 4+ Views OFFICE/OUTPATIENT VISIT, [facility] Advance Directives Directive Yes / No Effective Date File Name No Information Encounters Encounter Description Practice Location Reason(s) For Visit Diagnoses Date Provider Providers Copied on Encounter [facility], [address], [place], [place], [address], [place] tel:[phone] [facility] No Information 0-201 1 [address] [place]. [address], [address], [place], [place], [address] , [place]. tel:[phone] [facility], [address], [place], [place], [address], [place] tel:[phone] [facility] Spinal stenosis of lumbar region 2-201 1 Field [place]. [address], [address], [place], [place], [address] , [place]. tel:[phone] OFFICE/OUTPA TIENT VISIT, [facility], [address], [place], [place], [address], [place] tel:[phone] [facility] back pain (chief complaint) BackacheLumbagoSpin al stenosis of lumbar regionRadiculitis, Thoracic or LumbarPostlaminecto my syndrome of lumbar region 0-201 1 [address] [place]. [address], [address], [place], [place], [address] , [place]. [phone] Referring Provider: Neto Greene, [address], [place], [address] . tel:[phone] Family History Family Member Type Diagnosis Age At Onset Problem (finding) Family history of hyper tension Problem (finding) Family history of Arthr itis Payers Payer name Insurance type Covered republican ID Authoriza tion(s) No Information Social History [...]
[2024-06-01 09:03] VITALS: BP 162/70; PULSE 77; O2SAT 92; BMI 26.8
--- NOTE | 2024-06-01 09:03 | MHC.OFFVIS ---
Vital Signs 06/01/24 09:03 Height 5 ft 1 in Weight 142 lb BMI 26.8 BP 162/70 H Blood Pressure Location Lt brachial Position Sitting Pulse 77 Pulse Source Pulse Oximeter Pulse Oximetry (%) 92 Oxygen Delivery Method Room Air Intake Visit Reasons: s/p denny theraputic SIJ inj Allergies No Known Allergies Allergy (Verified 06/01/24 09:04) Medication List - Last Reconciled 06/01/24 by Ana Delgado, MASTER SHEET CLERK albuterol sulfate 90 mcg/actuation 2 puffs inhalation Q6H PRN aspirin (Adult Aspirin Regimen) 81 mg PO DAILY atorvastatin 10 mg PO BEDTIME buprenorphine 20 mcg/hour 1 patch transdermal Q7D mshkzlegjro-dtshdwmfq-mnkaeacy 100-62.5-25 mcg (Trelegy Ellipta) 1 inh inhalation DAILY gabapentin 300 mg PO TID levothyroxine 50 mcg PO DAILY metoprolol succinate ER 12.5 mg PO DAILY omeprazole 20 mg PO DAILY oxycodone 10 mg PO TID PRN quetiapine 50 mg PO Q6H PRN venlafaxine ER 225 mg PO BEDTIME HPI HPI s/p denny theraputic SIJ inj: Details: Sally reports 80% relief for 1 week following the therapeutic sacroiliac joint injection. She is currently at about 50% relief for weeks out. She is interested in repeating the injection. The last injection was done with a reduced dose given her osteoporosis history. She is interested in repeating the injection on 1 side only with a full dose of steroid. She also had an episode of waking up with severe midback pain last week. It got better after some conservative maneuvers. However she continues to have significant discomfort in her low back which is new and started suddenly. [facility] Medical History (Updated 06/01/24 @ 09:13 by Miguel Peña MD) Hyperlipidemia Seasonal allergic rhinitis Low back pain Chronic low back pain Chronic obstructive lung disease Moderate aortic valve stenosis Transient cerebral ischemia Impaired mobility Chronic kidney disease, stage 3 Opioid dependence Mild major depression Physical Exam Vital Signs: Last Vital Signs Pulse 77 06/01/24 09:03 BP 162/70 H 06/01/24 09:03 Pulse Ox 92 06/01/24 09:03 Oxygen Delivery Method Room Air 06/01/24 09:03 BMI result Body Mass Index 26.8 On exam today: Appears afebrile. Alert and oriented. Mood and affect appropriate. Follows and participates in conversation appropriately. Respiratory effort is unlabored. Able to transition from sit to stand unassisted. Ambulates with bilaterally normal heel strike and toe off. Able to stand and walk on toes and heels. Tenderness to palpation overlying the L3 and L4 spinous processes. Assessment & Plan Assessment & Plan (1) Low back pain: Code(s): M54.50 - Low back pain, unspecified Category: Medical (2) Sacroiliac joint pain: Code(s): M53.3 - Sacrococcygeal disorders, not elsewhere classified Category: Medical Plan Recommend lateral films of the lumbar spine to rule out compression fracture as the source of her new onset low back symptoms. Repeat sacroiliac joint dysfunction in 1 month on the right side given her increased symptoms on the right side that did not respond fully to the last round of injections. Justification for interventional therapy: Patient with average pain > 6/10 Patient has exhausted conservative therapy including physical therapy and oral medications. Previous injection provided 80% relief Orders: Orders XR lumbar spine 1V Today M54.50 - Low back pain, unspecified Coding Level of Care Code Est Pt Level 3 (33272) Diagnoses Low back pain M54.50 Sacroiliac joint pain M53.3
== END 2024-06-01 09:17 | disposition home or self-care (01) ==
PROVIDERS: PCP Physician Assistant; Visit Provider Internal Medicine
DX: M54.50 Low back pain, unspecified (principal); M53.3 Sacrococcygeal disorders, not elsewhere classified
CPT/HCPCS: 99213

== ENCOUNTER → 2024-06-01 09:41 | Outpatient (BNV) | payer MEDICARE, BC, SELFPAY | PROVIDERS: PCP Physician Assistant; Visit Provider Radiology Diagnostic Radiology | DX: Z00.5 Encounter for examination of potential donor of organ and tissue (principal); R09.02 Hypoxemia | CPT/HCPCS: 71045 ==

== ENCOUNTER 2024-06-21 06:21 | Outpatient (REF) | payer MEDICARE, BC, SELFPAY ==
--- NOTE | ~2024-06-21 | FL_ITS ---
EXAMINATION: FL GUIDANCE ONLY HISTORY: M53.3 - Sacrococcygeal disorders, not elsewhere classified COMPARISON: None available. TECHNIQUE: Fluoroscopy time: Less than 1 minute. Cumulative Dose: 0.962 mGy. Images: 2. FINDINGS: Images demonstrate a needle in the region of the right SI joint. FL/FL guidance in treatment room IMPRESSION: Fluoroscopy during procedure. Please see procedure report for additional information. Electronically signed by: Renard Ricardo MD 06/22/2024 07:53 AM EST
== END 2024-06-21 06:22 | disposition home or self-care (01) ==
LOC: CF 06:21
PROVIDERS: Visit Provider Internal Medicine
DX: M53.3 Sacrococcygeal disorders, not elsewhere classified (principal)
CPT/HCPCS: 27096; J2003; J2795; J3301

== ENCOUNTER 2024-06-21 11:51 | Outpatient (AMB) | payer MEDICARE, BC, SELFPAY ==
--- NOTE | 2024-06-21 12:11 | A.OFFVIS_ITS ---
Vital Signs 06/21/24 12:12 Height 5 ft 1 in Weight 142 lb BMI 26.8 BP 92/69 Blood Pressure Location Lt brachial Position Sitting Pulse 78 Pulse Source Pulse Oximeter Pulse Oximetry (%) 93 Oxygen Delivery Method Room Air Intake Visit Reasons: Right theraputic SIJ injection Securities Counselor Required: No Allergies No Known Allergies Allergy (Verified 06/21/24 12:13) Medication List - Last Reconciled 06/21/24 by Ana Delgado, PUNCH MOLDER albuterol sulfate 90 mcg/actuation 2 puffs inhalation Q6H PRN aspirin (Adult Aspirin Regimen) 81 mg PO DAILY atorvastatin 10 mg PO BEDTIME buprenorphine 20 mcg/hour 1 patch transdermal Q7D vjutgplowts-hcutekfep-lqqpdsna 100-62.5-25 mcg (Trelegy Ellipta) 1 inh inhalation DAILY gabapentin 300 mg PO TID levothyroxine 50 mcg PO DAILY metoprolol succinate ER 12.5 mg PO DAILY omeprazole 20 mg PO DAILY oxycodone 10 mg PO TID PRN quetiapine 50 mg PO Q6H PRN venlafaxine ER 225 mg PO BEDTIME Patient : No HPI HPI Right theraputic SIJ injection: Details: Patient presents for scheduled procedure. Denies any recent cough, cold, infection, fever or other significant changes in medical history since last office visit. [facility] Medical History (Updated 06/01/24 @ 09:13 by Miguel Peña MD) Hyperlipidemia Seasonal allergic rhinitis Low back pain Chronic low back pain Chronic obstructive lung disease Moderate aortic valve stenosis Transient cerebral ischemia Impaired mobility Chronic kidney disease, stage 3 Opioid dependence Mild major depression Social History Patient : No Physical Exam Vital Signs: Last Vital Signs Pulse 78 06/21/24 12:12 BP 92/69 06/21/24 12:12 Pulse Ox 93 06/21/24 12:12 Oxygen Delivery Method Room Air 06/21/24 12:12 BMI result Body Mass Index 26.8 Office Procedures AMB Joint Injection/Aspiration Joint Injection/Aspiration Details: Sacroiliac Joint Injection, Right The procedure, its benefits, and its risks were explained and written informed consent was obtained from the patient. Immediately prior to starting the procedure, a time-out safety check was conducted. The patient's identification, procedure name, procedure site, and procedure laterality were confirmed with the patient. ? Patient was placed prone on the fluoroscopy table and the lumbosacral area was prepped using ChloraPrep and draped with sterile drapein standard fashion. The C-arm was rotated in a contralateral oblique fashion until the medial border of the iliac crest no longer foreshadowed the posterior sacroiliac joint line. The skin and subcutaneous tissue was anesthetized using 1 mL of 0.75% plain lidocaine with 1.5-inch 25-gauge needle in the middle region of the joint line.?A 3.5-inch 22-gauge spinal needle with small bend on the tip was slowly advanced towards the joint line, coaxial to the x-ray beam. Once bony content was obtained, the needle was easily slid into the intra-articular space.?Intra- articular needle position was confirmed using lateral fluoroscopy.?A total volume of 2.5mL of solution containing 40 mg Kenalog and rest 0.5% of ropivacaine was injected intra-articularly. The stylet was reinserted and needle was removed. The patient tolerated the procedure well. Patient denied any lower extremity weakness or numbness. Patient was observed for 30 min and was discharged after fulfilling the standard discharge criteria. Coding 78137 - Sacroiliac Procedure code (CPT) selection complete Assessment & Plan Assessment & Plan (1) Sacroiliac joint pain: Code(s): M53.3 - Sacrococcygeal disorders, not elsewhere classified Category: Medical Plan Patient is status post right therapeutic sacroiliac joint injection. Patient tolerated procedure well and was discharged home in stable condition with discharge instructions. All questions were answered. We will follow-up via telephone or in clinic to assess response to therapy. A follow-up appointment was made during today's visit. Orders: Orders FL guidance in treatment room Today M53.3 - Sacrococcygeal disorders, not elsewhere classified Coding Level of Care Code Procedure Only Diagnoses Sacroiliac joint pain M53.3 CPT Codes Coding - Joint 9: 60177 - Sacroiliac ([id number])
[2024-06-21 12:12] VITALS: BP 92/69; PULSE 78; O2SAT 93; BMI 26.8
== END 2024-06-21 12:34 | disposition home or self-care (01) ==
LOC: HO.PMCPRC 11:51
PROVIDERS: PCP Physician Assistant; Visit Provider Internal Medicine
DX: M53.3 Sacrococcygeal disorders, not elsewhere classified (principal)
CPT/HCPCS: 27096

== ENCOUNTER 2024-07-23 11:36 | Outpatient (AMB) | payer MEDICARE, BC, SELFPAY ==
--- NOTE | 2024-07-23 11:42 | A.OFFVIS_ITS ---
Vital Signs 07/23/24 11:46 Height 5 ft 1 in Weight 144 lb BMI 27.2 BP 188/88 H Blood Pressure Location Lt brachial Position Sitting Pulse 86 Pulse Source Pulse Oximeter Pulse Oximetry (%) 94 Oxygen Delivery Method Room Air Intake Visit Reasons: s/p right theraputic SIJ inj Chronograph Operator Required: No Allergies No Known Allergies Allergy (Verified 07/23/24 11:43) Medication List - Last Reconciled 07/23/24 by Ana Delgado, LEAD MAN OVER ALL DIES IN PATTERN SHOP albuterol sulfate 90 mcg/actuation 2 puffs inhalation Q6H PRN aspirin (Adult Aspirin Regimen) 81 mg PO DAILY atorvastatin 10 mg PO BEDTIME buprenorphine 20 mcg/hour 1 patch transdermal Q7D kexntmttpuv-oypvcieid-gdphovyl 100-62.5-25 mcg (Trelegy Ellipta) 1 inh inhalation DAILY gabapentin 300 mg PO TID levothyroxine 50 mcg PO DAILY metoprolol succinate ER 12.5 mg PO DAILY omeprazole 20 mg PO DAILY oxycodone 10 mg PO TID PRN quetiapine 50 mg PO Q6H PRN venlafaxine ER 225 mg PO BEDTIME HPI HPI s/p right theraputic SIJ inj: Details: History of Present Illness The patient is an 89-year-old female presenting with follow-up after a therapeutic right sacroiliac joint injection. The injection provided approximately one week of relief with a return to baseline pain thereafter, differing from prior injection outcomes. Her axial low back pain is attributed to post-laminectomy syndrome, lumbar spondylosis, and lumbar scoliosis, managed previously through spinal cord stimulation trial, physical therapy, and injections, all without sufficient long-term relief. The patient seeks alternative treatment options due to lack of efficacy from surgical interventions and medication. There is consideration for temporary peripheral nerve stimulation targeted at the right side's medial branches, specifically L2 or L3, based on pain mapping, followed by a similar approach on the left side. Insurance approval will be necessary for this procedure. Pain Description - Onset: Pain relief post-injection lasted approximately one week before returning to baseline. - Quality/Character: Not explicitly mentioned. - Primary Location: Axial low back. - Radiation Areas: Not explicitly mentioned. - Aggravating Factors: Effectiveness of spinal cord stimulation was unsatisfactory. - Alleviating Factors: Limited relief from sacroiliac joint injection. - Interference: Chronic pain affects patient's functioning, details of interference not provided. Physical Exam: Appears afebrile. Alert and oriented. Mood and affect appropriate. Follows and participates in conversation appropriately. Respiratory effort is unlabored. Limited lumbar ROM. Results Pain Management - Affect: Impact on mood and psychological well-being not explicitly mentioned. - Analgesia: Previous trial of spinal cord stimulation discontinued; current pain level matches pre-injection baseline; goal to explore alternative therapies. - Adverse Effects: Not explicitly mentioned. - Activities of Daily Living: Affected by refractory low back pain; seeking improvement through new therapies. - Aberrant Drug Related Behaviors: Not explicitly mentioned. [facility] Medical History (Updated 06/01/24 @ 09:13 by Miguel Peña MD) Hyperlipidemia Seasonal allergic rhinitis Low back pain Chronic low back pain Chronic obstructive lung disease Moderate aortic valve stenosis Transient cerebral ischemia Impaired mobility Chronic kidney disease, stage 3 Opioid dependence Mild major depression Physical Exam Vital Signs: Last Vital Signs Pulse 86 07/23/24 11:46 BP 188/88 H 07/23/24 11:46 Pulse Ox 94 07/23/24 11:46 Oxygen Delivery Method Room Air 07/23/24 11:46 BMI result Body Mass Index 27.2 Assessment & Plan Assessment & Plan (1) Chronic low back pain: Code(s): M54.50 - Low back pain, unspecified; G89.29 - Other chronic pain Category: Medical (2) Lumbar postlaminectomy syndrome: Code(s): M96.1 - Postlaminectomy syndrome, not elsewhere classified Category: Medical Plan Plan The patient and I focused on addressing her axial low back pain associated with prior failed back syndrome and spinal conditions. Given the insufficient pain relief from her previous spinal cord stimulation and a sacroiliac joint injection, we discussed new methods, particularly the utility of temporary peripheral nerve stimulation on the right side. This could be sequenced with a similar approach on the left side after two weeks. Proceeding with this strategy requires securing insurance authorization given the refractory nature of her pain condition and lack of response to prior comprehensive treatments. Patient was informed and verbally consented to the use of an ambient scribe for clinic note documentation during this visit. Discussion Notes I engaged in a thorough discourse with the patient regarding her current condition and the therapeutic alternatives available. We extensively reviewed the option of temporary peripheral nerve stimulation targeting her axial low back pain due to post-laminectomy syndrome, considering localized nerve stimulation on the medial branches of the right side as the initial step. I outlined the risks and potential benefits, emphasizing the procedural nature and efficacy variations among patients. The patient approved this investigative approach, understanding that bilateral stimulation could follow, with insurance sanction being a necessary preliminary. Her expressed discomfort with spinal cord stimulation previously was acknowledged, contributing to current pain management decisions. Patient Instructions - Await insurance authorization for nerve stimulation. - Plan to start procedure on the right side with potential follow-up on the left side. - Monitor and report any significant changes in pain or function. - Maintain current pain management regimen until new treatments are initiated. Coding Level of Care Code Est Pt Level 3 (10735) Diagnoses Chronic low back pain M54.50; G89.29 Lumbar postlaminectomy syndrome M96.1
[2024-07-23 11:46] VITALS: BP 188/88; PULSE 86; O2SAT 94; BMI 27.2
--- OUTSIDE RECORDS SUMMARY | 2024-07-23 13:24 | XMS_ITS | Patient Health Record ---
Author Organization [facility], Address [address] [place] [address] Care Team Providers Care Product Management Consultant Name Role Phone Prabhu Walton Unavailable [phone] Renzo Hickman MD Unavailable Unavailable Reason For Referral No Information Plan Of Treatment No Information Insurance Providers Payer Name Payer Address Payer Phone Subscriber Number Group Number Insured Name Patient Relationship to Insured Coverage Start Date Coverage End Date Medicare Part B [employer] [address] [place] [phone] [id number] JohannGeorgeSally Self - patient is the insured [employer] Benefit Plan [address] [place] [phone] [id number] [facility] NikunjseanGeorgeSally Self - patient is the insured [facility] [address] [place] [address] NikunjseanGeorgeSally Self - patient is the insured
--- OUTSIDE RECORDS SUMMARY | 2024-07-23 13:24 | XMS_ITS | Patient Health Record ---
Author Organization Basilio Red DO, [facility] Address [address] [place] [address] Care Team Providers Care Home Health Aide Caregiver Name Role Phone Basilio Red Unavailable [phone] Vadim Simmons Unavailable Unavailable ALLERGIES No Known Allergies REASON FOR REFERRAL No Information MEDICATIONS Medication SIG (Take, Route, Frequency, Duration) Notes Start Date End Date Status fentaNYL Citrate-ROPivacaine patch Active ProAir HFA 108 (90 Base) MCG/ACT 2 puffs as needed Inhalation every 4 hrs for 30 days 10/12/2013 Active Oxygen 2 liters HS Active Gabapentin 300 MG 1 capsule Orally Thr ee times a day for 30 day(s) Active Diclofenac Sodium .2 mg 1 tablet Orally Once a day for 30 day(s) Active Trelegy Ellipta 100-62.5-25 MCG/INH 1 puff Inhalation Once a day for 30 days 04/15/2021 Active Aspirin 81 MG 1 tablet Orally Once a day for 30 day(s) Active Effexor 75 mg 3 tab(s) PO once a day 04/14/2010 Active QUEtiapine Fumarate 50 MG TK 1 T PO QID Oral for 30 Active Move Free Joint Health Advance - as directed Orally Active Advair HFA 115-21 MCG/ACT 2 puffs Inhalation Twice a day for 30 days 03/23/2021 Active oxyCODONE HCl 5 MG (Schedule II Drug) T K 1 T PO Q 4 H PRN P Oral for 30 Active SOCIAL HISTORY Sex Assigned At : Social History Observation Description Sex Assigned At Unknown Tobacco use other than smoking: Question Answer Notes Are you an other tobacco user? No PROBLEMS Problem Type ICD Code Onset Dates Problem Status W/U Status Risk SNOMED Code Notes Problem Pulmonary nodules (R91.8) Active confirmed 749435574 Problem Centrilobular emphysema (J43.2) Active confirmed 00150315 Problem Personal history of nicotine dependence (Z87.891) Active confirmed 31677214 PLAN OF TREATMENT Pending Test Test Name Order Date Chest X-ray PA and lateral 03/23/2021 Chest X-ray PA and lateral 02/23/2014 CBC With Differential/Platelet 4 Mycoplasma pneumoniae, IgM Ab 02/23/2014 TSH+Free T4 02/23/2014 CT Scan : Chest without contrast 018 COCCI CF,COCCI IGG and IGM 02/23/2014 Pulmonary Function Test 03/23/2021 Pulmonary Function Test 07/21/2015 Pulmonary Function Test 09/28/2017 CHEST 2 VIEWS 10/02/2013 Insurance Providers Payer Name Payer Address Payer Phone Subscriber Number Group Number Insured Name Patient Relationship to Insured Coverage Start Date Coverage End Date Medicare [place] (RANDI Simpson) [address] [place], [place] [phone] [id number] JEREMY HAMEED Self - patient is the insured 0 [employer] [facility] [address] [place], [place] [id number] JEREMY HAMEED Self - patient is the insured 9 MEDICAL (GENERAL) HISTORY Medical History History ICD Code Chronic Pain Depression Anxiety hypothyroidism shortness of breath chronic obstructive pulmonary disease (C OPD) hypoxemia chronic bronchitis pulmonary nodule Surgical History Surgery Date(Month/Year) Hemorrhoidectomy 1972 Cataract Extraction 2005 Hysterectomy-Vaginal 1975 Tonsillectomy/Adenoidectomy 194
--- OUTSIDE RECORDS SUMMARY | 2024-07-23 13:25 | XMS_ITS | Encounter Summary ---
Author Organization [facility], Address [address] [place] [address] Phone Care Team Providers Care Energy Manager Name Role Phone Cristel Garzon Primary Care Provider [phone] Encounter Details Date Type Department Care Team (Late Contact Info) Description 06/27/2024 Documentation Only [facility] [address] [place] [address] [place] [address] [place] [phone] Social History Tobacco Use Types Packs/Day Years Used Date Smoking Tobacco: Never Assessed Comments Unknown Sex and Gender Information Value Date Recorded Sex Assigned at Not on file Legal Sex Female 10:37 AM EST Gender Identity Not on file Sexual Orientation Not on file documented as of this encounter Plan of Treatment Upcoming Encounters Date Type Department Care Team (Late Contact Info) Description 08/23/2024 4:00 PM EDT Office Visit [facility] [address] [place] [phone] Kevin Dennis MD [address] [place] [address] [place] [address] documented as of this encounter Visit Diagnoses Not on filedocumented in this encounter Care Teams Energy Manager Relationship Specialty Start Date End Date Cristel Garzon PA [address] [place] [phone] PCP - General Physician Clinical Nursing Director 06/27/24 documented as of this encounter
--- OUTSIDE RECORDS SUMMARY | 2024-07-23 13:25 | XMS_ITS | Patient Health Record ---
Author Organization [facility] [place] Address [address] [place] [address] Care Team Providers [facility] Director Name Role Phone Sagar FARRELL, Elfego ONLY SEND VIA P2P Prima ry Care Provider Unavailable RADHA FARRELL, GELY Unavailable [phone] Allergies Allergen (clinical drug ingredient) Drug/Non Drug Allergy documented on EMR Reaction Allergy Type Onset Date Status amlodipine Norvasc Unknown Drug Allergy Active Reason For Referral No Information Medications Medication SIG (Take, Route, Frequency, Duration) Notes Start Date End Date Status Narcan 4 MG/0.1ML as directed Nasally prn for symptoms of overdose for 30 days educate on use Active Gabapentin 800 MG 1 tablet Orally Thre e times a day for 30 Active Neurontin 300 MG 3 tablets Orally qday Active QUEtiapine Fumarate Active amLODIPine Besylate Active Venlafaxine HCl Acti ve Albuterol Sulfate HFA Active Gabapentin 800 MG 1 tablet Orally Thre e times a day for 30 day(s) Active Gabapentin 300 MG TAKE 2 CAPSULES BY MOUTH THREE TIMES DAILY. for 90 Active Social History Alcohol Screen (Audit-C) Question Answer Notes Did you have a drink containing alcohol in the p ast year? 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 (Z79.891) Active confirmed Problem Lumbar radiculopathy (266095620) Lumbar radiculopathy (M54.16) Active confirmed Problem Lumbar spondylosis (764304256) Lumbar spondylosis (M47.816) Active confirmed Problem Lumbar post-laminectomy syndrome (972174163) 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) Active confirmed Problem Acquired scoliosis (539445283) Acquired scoliosis (M41.9) Active confirmed Plan Of Treatment No Information Insurance Providers Payer Name Payer Address Payer Phone Subscriber Number Group Number Insured Name Patient Relationship to Insured Coverage Start Date Coverage End Date MEDICARE [employer] PART B [address] [place] [address] [phone] [id number] JEREMY HAMEED Self - patient is the insured 0 [employer] [address] [place] [address] [id number] JEREMY HAMEED Self - patient is the insured Medical (General) History Medical History History ICD Code Hx-TIA Depression HLD HTN COPD Encephalopathy Anxiety and depression Bipolar 1 disorder Atopic dermatitis Surgical History Surgery Date(Month/Year) hysterectomy back surgery X2 eyelid lift
--- OUTSIDE RECORDS SUMMARY | 2024-07-23 13:25 | XMS_ITS | Clinical Summary ---
Author Organization [facility], Address [address] [place] [address] Phone Care Team Providers Care Market Specialist Name Role Phone Cristel Garzon Primary Care Provider [phone] Encounters Date Type Department Care Team Description 06/29/2024 Documentation Only [facility] [address] [place] [phone] lCara Moses MA 06/27/2024 Documentation Only [facility] [address] [place] [phone] Clara Moses MA from Last 3 Months Social History Tobacco Use Types Packs/Day Years Used Date Smoking Tobacco: Never Assessed Comments Unknown Sex and Gender Information Value Date Recorded Sex Assigned at Not on file Legal Sex Female 10:37 AM EST Gender Identity Not on file Sexual Orientation Not on file Plan of Treatment Upcoming Encounters Date Type Department Care Team (Late st Contact Info) Description 08/23/2024 4:00 PM EDT Office Visit [facility] [address] [place] [phone] Kevin Dennis MD [address] [place] [address] [place] [phone] Health Maintenance Due Date Last Done Comments Pneumococcal Vaccine: 65+ Years Completed 12/22/2017, 12/31/2014 Influenza Vaccine Completed 06/08/2024, 03/04/2015 Hepatitis B Vaccine Aged Out No longe r eligible based on patient's age to complete this topic Insurance MEDICARE [facility] Care Teams Market Specialist Relationship Specialty Start Date End Date Cristel Garzon PA [address] [place] [phone] PCP - General Physician Account Resolution Analyst 06/27/24
--- OUTSIDE RECORDS SUMMARY | 2024-07-23 13:25 | XMS_ITS | Data Portability ---
Author Organization [facility], [facility] Address [address] [place] [address] Care Team Providers Care Gravel Hauler Name Role Phone JENYMARIPOSA CLAUDIA Primary Care Provider [phone] KAELA NGUYỄN General Surgeon TEJAS DUNN Human Resources Representative [facility] PAIN MANAGEMENT Pain Management Assessment Encounter Date Assessment Date Assessment LastModified by Organization Details LastModified Time 11/11/2023 11/11/2023 We completed your Medicare Wellness exam today. This was an opportunity to assess your overall well being including your ability to care for yourself, your mobility, memory, mental health, as well as your safety. With advancing age, it is important to assign someone in your life as your Health Care Proxy (HCP). This person should know what is important to you and what your wishes are for medical procedures if you cannot communicate your wishes yourself (severe illness, unconsciousness) . We discussed having a completed Health Care Proxy form today. In addition, today we started a conversation about your End of Life wishes. These conversations will continue over the years. Please consider reading the book, Being Mortal by Adolfo Castañeda to help frame future conversations. We discussed the purpose of a MOLST form (Medical Orders for Life Sustaining Treatment) and completed this form if appropriate per your wishes. Vision and Hearing are senses that are critically important as we age. When impaired, they can contribute to memory loss, falls, and make it harder to drive, talk to family and friends, and engage in the world. Please get your vision checked yearly and your hearing checked when you start to notice hearing loss. We discussed approaches to lowering your risk of heart disease and stroke . Your blood pressure . Your cholesterol . We discussed cancer screening you may need as well as vaccines to prevent infections. Colon Cancer : Your risk of colon cancer is . Due for colorectal screening:. If you are not planning to have a colonoscopy please screen with stool cards yearly. Breast Cancer : Breast Cancer Screening (mammography). Next mammogram due: . Cervical Cancer Screening (pap test). Next pap due: . Prostate Cancer : PSA testing for ages 55-69 risks and benefits discussed . Influenza Vaccine : Flu shot yearly. Tetanus Vaccine : Every 10 years. Due: . The following vaccines are available from your pharmacy: Pneumonia Vaccine : PCV20: once after age 65. Shingles Vaccine : 2 shots after age 50. Covid Vaccine : Make sure you have received the most up to date covid vaccine. Your personal health goal for the year is: Not available 11/11/2023 15:25:16 06/08/2024 06/08/2024 Assessment and Plan Dysphagia Increasing difficulty swallowing both solids and liquids. No choking or coughing. Discussed potential evaluation with speech therapy for swallow study and possible endoscopy with gastroenterology . -Refer to speech therapy for swallow study. Chronic Kidney Disease Decreased kidney function with eGFR around 26. Blood pressure slightly elevated at 144, which may be contributing to worsening kidney function. No history of diabetes. Patient is on a small dose of blood pressure medication. -Check urine microalbumin. -Consult with inbound customer service representative. -Recheck blood pressure in 1 week at home. -Consider adjusting blood pressure medication after consultation with inbound customer service representative. Fatigue Patient reports feeling tired most of the time. Sleep quality and quantity may be contributing. Patient is on multiple medications which could potentially contribute to fatigue. -Start sleep diary to assess sleep quality and quantity. -Consult with psychiatrist regarding potential slow taper of quetiapine. Gastroesophageal Reflux Disease Patient reports occasional heartburn and bad taste in mouth. Currently on daily omeprazole which has helped. -Continue omeprazole daily. -Consider dietary modifications to reduce acid reflux. Chronic Pain Patient reports improvement in back pain after steroid injection. Currently on oxycodone 30mg daily. -Consider slow taper of oxycodone if pain continues to improve.- cont pain mgmt clinic Chronic Obstructive Pulmonary Disease Patient on daily Trelegy and as-needed albuterol. Reports good control of symptoms with current regimen. -Continue current inhaler regimen. General Health Maintenance -Physical exam scheduled for November. -Continue monitoring weight, as patient has lost 5 pounds since 2023- pt staets eating less. [email or web address] Not available 06/11/2024 10:22:03 Plan of Treatment Reminders Order Date Submit Date Provider Last Modified By Organization Details Last Modified Time Details Appointments Wellness Visit 30 2024 09:00A M SHAMIKA Gamez Not available Not available Not available Lab microalb umin/cre atinine, ratio panel, urine [address] [facility], [address] [place] [address], [id number], 06/18/2024 09:44:14 drug screen, urine - Last dose: 06/07/24, 3pm, [address] [facility], [address] [place] [address], [address], 06/11/2024 16:03:40 opiates, quantita tive, urine - Last dose: 06/07/24, 3pm, [address] [facility], [address] [place] [address], [address], 06/17/2024 15:07:44 [email or web address] [address] [place] [address], [address], 12/19/2023 14:44:22 drug screen, urine - last dose of oxycodon e 11/12/23 8pm T [address] [facility], [address] [place] [address], [address], 11/15/2023 14:52:25 Referral nephrolo gist referral - 89yo with renal disease. no pmh htn- borderli ne BP's in recent yrs- with s/e lisinopr il hypotens ion- request your eval 2024 025 kaden Dennis MD, [address] [facility] [address], [place], [address], 07/02/2024 09:02:18 speech therapy referral 2024 025 [email or web address], [address], [place], [address], 06/11/2024 15:56:34 Procedures None recorded . Surgeries None recorded . Imaging US, head + neck, soft tissue - new mass - soft - right neck 2023 [facility] (Imaging), [address], [place], [address], 02/08/2024 16:12:41 XR, chest - worsenin g cough, bibasila r crackles - COPD hx [address] [facility] ([facility]), [address], [place], [address], 02/07/2024 16:13:19 Medication Orders Augmenti n 875 mg-125 mg tablet 2023 024 [id number], [address] [place], [address], 06/08/2024 14:10:02 lisinopr il 2.5 mg tablet 2023 024 [email or web address], [address] [place], [address], 02/07/2024 15:14:09 metoprol ol succinat e ER 25 mg tablet,e xtended release 24 hr 2023 024 [facility], [address] [place], [address], 11/11/2023 17:17:36 Patient TargetsNo targets recorded. Patient Instructions Encounter Date Encounter Id Patient Instructions Last Modified By Organization Details Last Modified Time 08/17/2023 [id number] After a discussi on of treatment options, which included consideration of best practices, patient preferences, and the patient? s individual lifestyle and treatment goals, as well as consideration and attempted mitigation of any barriers to meeting the patient? s goals, the following treatment plan and objectives were adopted: as above [email or web address] Not available 08/18/2023 12:29:16 I am aware of [facility] inpatient facility discharge medications, the medication list above has been reconciled with those medications and reflects my understanding of an up to date medication list for this patient. [email or web address] Not available 08/17/2023 16:32:44 11/11/2023 [id number] After a discussi on of treatment options, which included consideration of best practices and patient preferences, the following treatment plan and objectives were adopted: Vitamin D andCalcium rich diet, exercise daily, resistance training twice per week, Mediterranean diet reviewed. [email or web address] Not available 11/13/2023 21:33:12 12/16/2023 [id number] After a discussi on of treatment options, which included consideration of best practices, patient preferences, and the patient? s individual lifestyle and treatment goals, as well as consideration and attempted mitigation of any barriers to meeting the patient? s goals, the following treatment plan and objectives were adopted: as above [email or web address] Not available 12/16/2023 16:35:52 02/07/2024 [id number] More than 45 minutes spent in direct evaluation and counseling of pt, including medication adjustments, referrals and followup plan. [email or web address] Not available 02/08/2024 08:13:55 06/08/2024 [id number] medicines to mannie id with kidney disease: care instructions [email or web address] Not available 06/08/2024 15:02:18 high blood pressure: care instructions [email or web address] Not available 06/08/2024 15:02:18 learning about high blood pressure [email or web address] Not available 06/08/2024 15:02:18 My Health To Do List Specific Analgesia Plan: {{Continue present regimen* Adjust dose of present analgesic Switch analgesics Add/Adj ust concomitant therapy Discontinu e/taper off opioid therapy}} Specific Goals for next visit {{increase exercise* start stress management improve sleeping start Yoga start TaiChi see therapist}}The patient is currently {{at* not at}} their goal of safe, stable use of narcotic pain medication to improve their functioning in life. Since the last visit there has been {{activity of concern no activity of concern*}}:{{# ove ruse of meds request for an early refill abuse of staff noncomplianc e with UDS or pill count requests abnormal UDS}} Patient today is {{at high risk at moderate risk at low risk*}} for {{abuse of meds* misuse of meds}}. Monitoring will include {{pill counts repeat UDS* closer follow-up with shorter scripts}}. Patients current goals of {{better sleep more activity* return to work return to school improved ADL's improved self care improved function in roles}} were discussed with patient, unlikelihood of 100% reduction in pain made clear. Patient has read narcotics contract and understands the properties of narcotic medication. [email or web address] Not available 06/08/2024 14:03:47 Reason for Referral Track Greaser Referral for ronic kidney disease stage 3 89yo with renal disease. no pmh htn- borderline BP's in recent yrs- with s/e lisinopril hypotension- request your eval Referring Physician: Claudia Garzon, Family Medicine, Encounter Date: 06/08/2024 Referring Physician: Claudia youngblood, Family Medicine, Encounter Date: 06/08/2024 Results Created Date Observation Date Name Description Value Unit Range Abnormal Flag Note LastModifiedBy Organization Detail LastModifiedTime 11/12/19 24 11/15/2023 DRUG SCREE N-8, URINE , WITH CONFI RMATI ON GC/MS amphetamine NEG. negati ve Not Available [address], [address], 11/15/2023 14:52:25 11/12/19 24 11/15/2023 DRUG SCREE N-8, URINE , WITH CONFI RMATI ON GC/MS barbiturates NEG. negati ve Not Available [address], [address], 11/15/2023 14:52:25 11/12/19 24 11/15/2023 DRUG SCREE N-8, URINE , WITH CONFI RMATI ON GC/MS benzodiazepi ne NEG. negati ve Not Available [address], [address], 11/15/2023 14:52:25 11/12/19 24 11/15/2023 DRUG SCREE N-8, URINE , WITH CONFI RMATI ON GC/MS cocaine NEG. negati ve Not Available [address], [address], 11/15/2023 14:52:25 11/12/19 24 11/15/2023 DRUG SCREE N-8, URINE , WITH CONFI RMATI ON GC/MS opiates POS. negati ve Not Available [address], [address], 11/15/2023 14:52:25 11/12/19 24 11/15/2023 DRUG SCREE N-8, URINE , WITH CONFI RMATI ON GC/MS methadone NEG. negati ve Not Available [address], [address], 11/15/2023 14:52:25 11/12/19 24 11/15/2023 DRUG SCREE N-8, URINE , WITH CONFI RMATI ON GC/MS fentanyl NEG. negati ve Syva EMIT II Limit s of Detec tion (cutt -off value s) Delmar Expan d: Amphe tamin es: 1000 ng/ml Opiat es: 300 ng/ml Heaven tuate s: 200 ng/ml Oxyco done 100 ng/ml Benzo diaze pines : 200 ng/ml Metha done 300 ng/ml Cocai ne: 300 ng/ml Fenta nyl 1 ng/ml Not Available [address], [address], 11/15/2023 14:52:25 11/12/19 24 11/15/2023 DRUG SCREE N-8, URINE , WITH CONFI RMATI ON GC/MS oxycodone POS. negati ve Not Available [address], [address], 11/15/2023 14:52:25 11/12/19 24 11/17/2023 DRUG TOX MONIT ORING OPIAT ES EXPAN DED QN, U codeine NEGATI VE NG/mL <50 See Note 1 Not Available [facility] [place] [facility] [address], [place], [address], 11/17/2023 09:02:56 11/12/19 24 11/17/2023 DRUG TOX MONIT ORING OPIAT ES EXPAN DED QN, U hydrocodone NEGATI VE NG/mL <50 See Note 1 Not Available [facility] [place] [facility] [address], [place], [address], 11/17/2023 09:02:56 11/12/19 24 11/17/2023 DRUG TOX MONIT ORING OPIAT ES EXPAN DED QN, U hydromorphon e NEGATI VE NG/mL <50 See Note 1 Not Available [facility] [place] [facility] [address], [place], [address], 11/17/2023 09:02:56 11/12/19 24 11/17/2023 DRUG TOX MONIT ORING OPIAT ES EXPAN DED QN, U morphine NEGATI VE NG/mL <50 See Note 1 Not Available [facility] [place] [facility] [address], [place], [address], 11/17/2023 09:02:56 11/12/19 24 11/17/2023 DRUG TOX MONIT ORING OPIAT ES EXPAN DED QN, U norhydrocodo ne NEGATI VE NG/mL <50 See Note 1 Not Available [facility] [place] [facility] [address], [place], [address], 11/17/2023 09:02:56 11/12/19 24 11/17/2023 DRUG TOX MONIT ORING OPIAT ES EXPAN DED QN, U noroxycodone >84525 NG/mL <50 high See Note 1 Not Available [facility] [place] [facility] [address], [place], [address], 11/17/2023 09:02:56 11/12/19 24 11/17/2023 DRUG TOX MONIT ORING OPIAT ES EXPAN DED QN, U oxycodone 3009 NG/mL <50 high See Note 1 Not Available [facility] [place] [facility] [address], [place], [address], 11/17/2023 09:02:56 11/12/19 24 11/17/2023 DRUG TOX MONIT ORING OPIAT ES EXPAN DED QN, U oxymorphone 1694 NG/mL <50 high See Note 1 Not Available [facility] [address], [place], [address], 11/17/2023 09:02:56 11/12/19 24 11/17/2023 DRUG TOX MONIT ORING OPIAT ES EXPAN DED QN, U Unknown Analyte See Note 2 Note 1 This test was garret payan and its rafia tical perfo rmanc e srikanth cteri stics have been deter mined by [facility] [employer]. It has not been clear ed or appro divine by the FDA. This assay has been valid ated pursu ant to the CLIA regul ation s and is used for clini clare purpo ses. Note 2 This drug testi ng is for medic al treat ment only. Rafia sis was perfo rmed as non-f orens ic testi ng and these resul ts shoul d be used only by healt hcare provi ders to rende r diagn osis or treat ment, or to monit or progr ess of medic al condi tions . For silvia tance with inter preti ng these drug resul ts, pleas e conta ct a [facility] Toxic ology Speci alist : [phone] X [phone] ( [phone] ), M-F, 8am-6 pm EST. Not Available [facility] [address], [place], [address], 11/17/2023 09:02:56 12/09/1912/12/2023 TSH TSH 1.55 uIU/m L 0.50-6 .00 The Ameri can Colle ge of Endoc rinol ogy and Ameri can Thyro id Assoc iatio n recom mend goal TSH value s betwe en 0.4-4 .0 mIU/m L. Not Available [address], [address], 12/12/2023 12:18:49 12/09/1912/13/2023 COMP. METAB OLIC PANEL glucose 105 mg/dL 70-100 high Not Available [address], [address], 12/13/2023 14:06:09 12/09/19 24 12/13/2023 COMP. METAB OLIC PANEL BUN 18 mg/dL 7-18 Not Available [address], [address], 12/13/2023 14:06:09 12/09/19 24 12/13/2023 COMP. METAB OLIC PANEL creatinine 1.2 mg/dL 0.8-1. 3 Not Available [address], [address], 12/13/2023 14:06:09 12/09/19 24 12/13/2023 COMP. METAB OLIC PANEL B/C 15.0 ratio Not Available [address], [address], 12/13/2023 14:06:09 12/09/19 24 12/13/2023 COMP. METAB OLIC PANEL GFR 43.5 mL/mi n abnormal >=60m L/min - Halle l or midly reduc ed <60mL /min- Decre ased kidne y funct ion <15mL /min - Kidne y failu re Ngo y Medic al Group calcu lates estim ated Glome rular Filtr ation Rate (eGFR ) using the Chron ic Kidne y Disea se Epide miolo gy Colla borat ion (CKD- EPI) Equat ion (Magdiel r et. al 2020) as recom darin d by the Natio nal Kidne y Found ation . eGFR is based on age, serum creat inine , and sex. CKD-E PI does not calcu late eGFR by race, does not apply to child jeffry (age <18 years ), and shoul d not be used in pregn milana. Not Available [address], [address], 12/13/2023 14:06:09 12/09/19 24 12/13/2023 COMP. METAB OLIC PANEL sodium 145 mmol/ L 136-14 5 Not Available [address], [address], 12/13/2023 14:06:09 12/09/19 24 12/13/2023 COMP. METAB OLIC PANEL potassium 4.6 mmol/ L 3.5-5. 1 Not Available [address], [address], 12/13/2023 14:06:09 12/09/19 24 12/13/2023 COMP. METAB OLIC PANEL chloride 105 mmol/ L 96-107 Not Available [address], [address], 12/13/2023 14:06:09 12/09/19 24 12/13/2023 COMP. METAB OLIC PANEL anion gap 8.4 5.0-15 .0 Not Available [address], [address], 12/13/2023 14:06:09 12/09/19 24 12/13/2023 COMP. METAB OLIC PANEL CO2 32 mmol/ L 21-32 Not Available [address], [address], 12/13/2023 14:06:09 12/09/19 24 12/13/2023 COMP. METAB OLIC PANEL calcium 9.2 mg/dL 8.5-10 .3 Not Available [address], [address], 12/13/2023 14:06:09 12/09/19 24 12/13/2023 COMP. METAB OLIC PANEL total protein 6.7 g/dL 6.4-8. 2 Not Available [address], [address], 12/13/2023 14:06:09 12/09/19 24 12/13/2023 COMP. METAB OLIC PANEL albumin 4.2 g/dL 3.4-5. 0 Not Available [address], [address], 12/13/2023 14:06:09 12/09/19 24 12/13/2023 COMP. METAB OLIC PANEL globulin 2.5 g/dL Not Available [address], [address], 12/13/2023 14:06:09 12/09/19 24 12/13/2023 COMP. METAB OLIC PANEL A/G 1.7 ratio 0.8-2. 0 Not Available [address], [address], 12/13/2023 14:06:09 12/09/19 24 12/13/2023 COMP. METAB OLIC PANEL total bilirubin 0.40 mg/dL 0.00-1 .00 Not Available [address], [address], 12/13/2023 14:06:09 12/09/19 24 12/13/2023 COMP. METAB OLIC PANEL AST 33 U/L 0-37 Not Available [address], [address], 12/13/2023 14:06:09 12/09/19 24 12/13/2023 COMP. METAB OLIC PANEL ALT 35 U/L 6-63 Not Available [address], [address], 12/13/2023 14:06:09 12/09/19 24 12/13/2023 COMP. METAB OLIC PANEL alk. phos. 68 U/L 50-136 Not Available [address], [address], 12/13/2023 14:06:09 12/09/19 24 12/13/2023 DIREC T LDL direct LDL 142 mg/dL RISK CATEG ORY LDL GOAL _ CHD or CHD Risk Equiv alent s <100 mg/dl (10-y ear risk >20%) 2+ Risk Facto rs <130 mg/dl (10-y ear risk <= 20%) 0-1 Risk Facto r? <160 mg/dl ? Almos t all peopl e with 0-1 risk facto r have a 10 year risk <10%, thus 10 year risk asses ment in peopl e with 0-1 risk facto r is not neces kareem. Not Available [address], [address], 12/13/2023 14:06:10 12/09/19 24 12/13/2023 LIPID PANEL cholesterol 245 mg/dL <200 mg/dl Rosaura able 200-2 39 mg/dl Borde rline High >240 mg/dl High Not Available [address], [address], 12/13/2023 15:35:55 12/09/19 24 12/13/2023 LIPID PANEL triglyceride s 183 mg/dL <150 mg/dL Halle l 150-1 99 mg/dL Borde rline High 200-4 99 mg/dL High >500 mg/dL Very High Not Available [address], [address], 12/13/2023 15:35:55 07/12/20 24 12/13/2023 LIPID PANEL direct HDL 65 mg/dL <40 mg/dl - Major Risk for CHD >60 mg/dl - Negat saundra Risk for CHD Not Available [address], [place], [address], 12/13/2023 15:35:55 12/17/19 24 12/18/2023 CBC (INCL UDES DIFF/ PLT) white blood cell count 6.3 thous and/u L 3.8-10 .8 normal Not Available [facility] [place] [facility] [address], [place], [address], 12/18/2023 05:37:58 12/17/19 24 12/18/2023 CBC (INCL UDES DIFF/ PLT) red blood cell count 3.93 sergio on/uL 3.80-5 .10 normal Not Available [facility] [place] [facility] [address], [place], [address], 12/18/2023 05:37:58 12/17/19 24 12/18/2023 CBC (INCL UDES DIFF/ PLT) hemoglobin 12.4 g/dL 11.7-1 5.5 normal Not Available [facility] [place] [facility] [address], [place], [address], 12/18/2023 05:37:58 12/17/19 24 12/18/2023 CBC (INCL UDES DIFF/ PLT) hematocrit 38.5 % 35.0-4 5.0 normal Not Available [facility] [place] [facility] [address], [place], [address], 12/18/2023 05:37:58 12/17/19 24 12/18/2023 CBC (INCL UDES DIFF/ PLT) MCV 98.0 fL 80.0-1 00.0 normal Not Available [facility] [address], [place], [address], 12/18/2023 05:37:58 12/17/19 24 12/18/2023 CBC (INCL UDES DIFF/ PLT) MCH 31.6 pg 27.0-3 3.0 normal Not Available [facility] [place] [facility] [address], [place], [address], 12/18/2023 05:37:58 12/17/19 24 12/18/2023 CBC (INCL UDES DIFF/ PLT) MCHC 32.2 g/dL 32.0-3 6.0 normal Not Available [facility] [place] [facility] [address], [place], [address], 12/18/2023 05:37:58 12/17/19 24 12/18/2023 CBC (INCL UDES DIFF/ PLT) RDW 12.9 % 11.0-1 5.0 normal Not Available [facility] [place] [facility] [address], [place], [address], 12/18/2023 05:37:58 12/17/19 24 12/18/2023 CBC (INCL UDES DIFF/ PLT) platelet count 122 thous and/u L 140-40 0 low Not Available [facility] [place] [facility] [address], [place], [address], 12/18/2023 05:37:58 12/17/19 24 12/18/2023 CBC (INCL UDES DIFF/ PLT) MPV 12.6 fL 7.5-12 .5 high Not Available [facility] [place] [facility] [address], [place], [address], 12/18/2023 05:37:58 12/17/19 24 12/18/2023 CBC (INCL UDES DIFF/ PLT) absolute neutrophils 3011 cells /uL 1500-7 800 normal Not Available [facility] [place] [facility] [address], [place], [address], 12/18/2023 05:37:58 12/17/19 24 12/18/2023 CBC (INCL UDES DIFF/ PLT) absolute lymphocytes 2514 cells /uL 850-39 00 normal Not Available [facility] [place] [facility] [address], [place], [address], 12/18/2023 05:37:58 12/17/19 24 12/18/2023 CBC (INCL UDES DIFF/ PLT) absolute monocytes 347 cells /uL 200-95 0 normal Not Available [facility] [place] [facility] [address], [place], [address], 12/18/2023 05:37:58 12/17/19 24 12/18/2023 CBC (INCL UDES DIFF/ PLT) absolute eosinophils 391 cells /uL 15-500 normal Not Available [facility] [place] [facility] [address], [place], [address], 12/18/2023 05:37:58 12/17/19 24 12/18/2023 CBC (INCL UDES DIFF/ PLT) absolute basophils 38 cells /uL 0-200 normal Not Available [facility] [place] [facility] [address], [place], [address], 12/18/2023 05:37:58 12/17/19 24 12/18/2023 CBC (INCL UDES DIFF/ PLT) neutrophils 47.8 % normal Not Available [facility] [place] [facility] [address], [place], [address], 12/18/2023 05:37:58 12/17/19 24 12/18/2023 CBC (INCL UDES DIFF/ PLT) lymphocytes 39.9 % normal Not Available [facility] [place] [facility] [address], [place], [address], 12/18/2023 05:37:58 12/17/19 24 12/18/2023 CBC (INCL UDES DIFF/ PLT) monocytes 5.5 % normal Not Available [facility] [address], [address], 12/18/2023 05:37:58 12/17/19 24 12/18/2023 CBC (INCL UDES DIFF/ PLT) eosinophils 6.2 % normal Not Available [facility] [address], [place], [address], 12/18/2023 05:37:58 12/17/19 24 12/18/2023 CBC (INCL UDES DIFF/ PLT) basophils 0.6 % normal Not Available [facility] [address], [address], 12/18/2023 05:37:58 04/02/20 24 04/02/2024 CBC WBC 6.25 K/? ? ?L 3.98-1 0.04 Not Available [address], [address], 04/02/2024 17:18:02 04/02/20 24 04/02/2024 CBC RBC 3.94 M/? ? ?L 3.93-5 .22 Not Available [address], [address], 04/02/2024 17:18:02 04/02/20 24 04/02/2024 CBC HGB 12.6 g/dL 11.2-1 5.7 Not Available [address], [address], 04/02/2024 17:18:02 04/02/20 24 04/02/2024 CBC HCT 38.6 % 34.1-4 4.9 Not Available [address], [address], 04/02/2024 17:18:02 04/02/20 24 04/02/2024 CBC MCV 98.0 fL 79.4-9 4.8 high Not Available [address], [address], 04/02/2024 17:18:02 04/02/20 24 04/02/2024 CBC MCH 32.0 pg 25.6-3 2.2 Not Available [address], [address], 04/02/2024 17:18:02 04/02/20 24 04/02/2024 CBC MCHC 32.6 g/dL 32.2-3 5.5 Not Available [address], [address], 04/02/2024 17:18:02 04/02/20 24 04/02/2024 CBC plt 142 K/? ? ?L 182-36 9 low Not Available [address], [address], 04/02/2024 17:18:02 04/02/20 24 04/02/2024 CBC MPV 12.2 fL 9.4-12 .3 Not Available [address], [address], 04/02/2024 17:18:02 04/02/20 24 04/02/2024 CBC neut% 52.3 % 34.0-7 1.1 Not Available [address], [address], 04/02/2024 17:18:02 04/02/20 24 04/02/2024 CBC neut# 3.27 1.56-6 .13 Not Available [address], [address], 04/02/2024 17:18:02 04/02/20 24 04/02/2024 CBC lymph % 36.5 % 19.3-5 1.7 Not Available [address], [address], 04/02/2024 17:18:02 04/02/20 24 04/02/2024 CBC lymph # 2.28 K/? ? ?L 1.18-3 .74 Not Available [address], [address], 04/02/2024 17:18:02 04/02/20 24 04/02/2024 CBC mono% 5.0 % 4.7-12 .5 Not Available [address], [address], 04/02/2024 17:18:02 04/02/20 24 04/02/2024 CBC mono# 0.31 0.24-0 .56 Not Available [address], [address], 04/02/2024 17:18:02 04/02/20 24 04/02/2024 CBC eo% 5.4 % 0.7-5. 8 Not Available [address], [address], 04/02/2024 17:18:02 04/02/20 24 04/02/2024 CBC eo# 0.34 0.04-0 .36 Not Available [address], [address], 04/02/2024 17:18:02 04/02/20 24 04/02/2024 CBC baso% 0.5 % 0.1-1. 2 Not Available [address], [address], 04/02/2024 17:18:02 04/02/20 24 04/02/2024 CBC baso# 0.03 0.00-0 .08 Not Available [address], [address], 04/02/2024 17:18:02 04/02/20 24 04/02/2024 CBC RDW-CV 12.4 % 11.7-1 4.4 Not Available [address], [address], 04/02/2024 17:18:02 04/02/20 24 04/02/2024 CBC Ig% 0.300 % 0.000- 1.500 Ig % >0.5 Indic ates possi ble Left Shift Not Available [address], [address], 04/02/2024 17:18:02 04/02/20 24 04/02/2024 CBC Ig# 0.020 0.000- 0.093 Not Available [address], [address], 04/02/2024 17:18:02 04/02/20 24 04/02/2024 CBC NRBC% 0.0 % 0.0-0. 2 Not Available [address], [address], 04/02/2024 17:18:02 04/02/20 24 04/02/2024 CBC NRBC# 0.000 0.000- 0.012 Not Available [address], [address], 04/02/2024 17:18:02 04/02/20 24 04/03/2024 BASIC METAB OLIC PANEL glucose 84 mg/dL 70-100 Not Available [address], [address], 04/03/2024 11:37:33 04/02/20 24 04/03/2024 BASIC METAB OLIC PANEL BUN 18 mg/dL 7-18 Not Available [address], [address], 04/03/2024 11:37:33 04/02/20 24 04/03/2024 BASIC METAB OLIC PANEL creatinine 1.5 mg/dL 0.8-1. 3 high Not Available [address], [address], 04/03/2024 11:37:33 04/02/20 24 04/03/2024 BASIC METAB OLIC PANEL B/C 12.0 ratio Not Available [address], [address], 04/03/2024 11:37:33 04/02/20 24 04/03/2024 BASIC METAB OLIC PANEL GFR 33.3 mL/mi n abnormal >=60m L/min - Halle l or midly reduc ed <60mL /min- Decre ased kidne y funct ion <15mL /min - Kidne y failu re Ngo y Medic al Group calcu lates estim ated Glome rular Filtr ation Rate (eGFR ) using the Chron ic Kidne y Disea se Epide miolo gy Colla borat ion (CKD- EPI) Equat ion (Magdiel hale et. al 2020) as recom darin d by the Natio nal Kidne y Found ation . eGFR is based on age, serum creat inine , and sex. CKD-E PI does not calcu late eGFR by race, does not apply to child jeffry (age <18 years ), and shoul d not be used in pregn milana. Not Available [address], [address], 04/03/2024 11:37:33 04/02/20 24 04/03/2024 BASIC METAB OLIC PANEL sodium 142 mmol/ L 136-14 5 Not Available [address], [address], 04/03/2024 11:37:33 04/02/20 24 04/03/2024 BASIC METAB OLIC PANEL potassium 4.7 mmol/ L 3.5-5. 1 Not Available [address], [address], 04/03/2024 11:37:33 04/02/20 24 04/03/2024 BASIC METAB OLIC PANEL chloride 103 mmol/ L 96-107 Not Available [address], [address], 04/03/2024 11:37:33 04/02/20 24 04/03/2024 BASIC METAB OLIC PANEL anion gap 9.1 5.0-15 .0 Not Available [address], [address], 04/03/2024 11:37:33 04/02/20 24 04/03/2024 BASIC METAB OLIC PANEL CO2 30 mmol/ L 21-32 Not Available [address], [address], 04/03/2024 11:37:33 04/02/20 24 04/03/2024 BASIC METAB OLIC PANEL calcium 9.3 mg/dL 8.5-10 .3 Not Available [address], [address], 04/03/2024 11:37:33 06/04/19 25 06/05/2024 BASIC METAB OLIC PANEL glucose 110 mg/dL 70-100 high Not Available [address], [address], 06/05/2024 11:15:11 06/04/19 25 06/05/2024 BASIC METAB OLIC PANEL BUN 13 mg/dL 7-18 Not Available [address], [address], 06/05/2024 11:15:11 06/04/19 25 06/05/2024 BASIC METAB OLIC PANEL creatinine 1.8 mg/dL 0.8-1. 3 high Not Available [address], [address], 06/05/2024 11:15:11 06/04/19 25 06/05/2024 BASIC METAB OLIC PANEL B/C 7.2 ratio Not Available [address], [address], 06/05/2024 11:15:11 06/04/19 25 06/05/2024 BASIC METAB OLIC PANEL GFR 26.6 mL/mi n abnormal >=60m L/min - Halle l or midly reduc ed <60mL /min- Decre ased kidne y funct ion <15mL /min - Kidne y failu re Ngo y Medic al Group calcu lates estim ated Glome rular Filtr ation Rate (eGFR ) using the Chron ic Kidne y Disea se Epide miolo gy Colla borat ion (CKD- EPI) Equat ion (Magdiel r et. al 2020) as recom darin d by the Natio nal Kidne y Found ation . eGFR is based on age, serum creat inine , and sex. CKD-E PI does not calcu late eGFR by race, does not apply to child jeffry (age <18 years ), and shoul d not be used in pregn milana. Not Available [address], [address], 06/05/2024 11:15:11 06/04/19 25 06/05/2024 BASIC METAB OLIC PANEL sodium 142 mmol/ L 136-14 5 Not Available [address], [address], 06/05/2024 11:15:11 06/04/19 25 06/05/2024 BASIC METAB OLIC PANEL potassium 4.7 mmol/ L 3.5-5. 1 Not Available [address], [address], 06/05/2024 11:15:11 06/04/19 25 06/05/2024 BASIC METAB OLIC PANEL chloride 104 mmol/ L 96-107 Not Available [address], [address], 06/05/2024 11:15:11 06/04/19 25 06/05/2024 BASIC METAB OLIC PANEL anion gap 8.6 5.0-15 .0 Not Available [address], [address], 06/05/2024 11:15:11 06/04/19 25 06/05/2024 BASIC METAB OLIC PANEL CO2 29 mmol/ L 21-32 Not Available [address], [address], 06/05/2024 11:15:11 06/04/19 25 06/05/2024 BASIC METAB OLIC PANEL calcium 9.1 mg/dL 8.5-10 .3 Not Available [address], [address], 06/05/2024 11:15:11 06/08/19 25 06/11/2024 DRUG SCREE N-8, URINE , WITH CONFI RMATI ON GC/MS amphetamine NEG. negati ve Not Available [address], [address], 06/11/2024 16:03:40 06/08/19 25 06/11/2024 DRUG SCREE N-8, URINE , WITH CONFI RMATI ON GC/MS barbiturates NEG. negati ve Not Available [address], [address], 06/11/2024 16:03:40 06/08/19 25 06/11/2024 DRUG SCREE N-8, URINE , WITH CONFI RMATI ON GC/MS benzodiazepi ne NEG. negati ve Not Available [address], [address], 06/11/2024 16:03:40 06/08/19 25 06/11/2024 DRUG SCREE N-8, URINE , WITH CONFI RMATI ON GC/MS cocaine NEG. negati ve Not Available [address], [address], 06/11/2024 16:03:40 06/08/19 25 06/11/2024 DRUG SCREE N-8, URINE , WITH CONFI RMATI ON GC/MS opiates POS. negati ve Not Available [address], [address], 06/11/2024 16:03:40 06/08/19 25 06/11/2024 DRUG SCREE N-8, URINE , WITH CONFI RMATI ON GC/MS methadone NEG. negati ve Not Available [address], [address], 06/11/2024 16:03:40 06/08/19 25 06/11/2024 DRUG SCREE N-8, URINE , WITH CONFI RMATI ON GC/MS fentanyl NEG. negati ve Syva EMIT II Limit s of Detec tion (cutt -off value s) [place] Expan d: Amphe tamin es: 1000 ng/ml Opiat es: 300 ng/ml Heaven tuate s: 200 ng/ml Oxyco done 100 ng/ml Benzo diaze pines : 200 ng/ml Metha done 300 ng/ml Cocai ne: 300 ng/ml Fenta nyl 1 ng/ml Not Available [address], [address], 06/11/2024 16:03:40 06/08/19 25 06/11/2024 DRUG SCREE N-8, URINE , WITH CONFI RMATI ON GC/MS oxycodone POS. negati ve Not Available [address], [address], 06/11/2024 16:03:40 06/08/19 25 06/17/2024 DRUG TOX MONIT ORING OPIAT ES EXPAN DED QN, U codeine NEGATI VE NG/mL <50 See Note 1 Not Available [facility] [address], [address], 06/17/2024 15:07:44 06/08/1906/17/2024 DRUG TOX MONIT ORING OPIAT ES EXPAN DED QN, U hydrocodone NG/mL <50 The above test was perfo rmed; shawna er, rafia sis of this sampl e indic ates a drug/ chemi clare inter feren ce with the assay . We are unabl e to repor t a quant itati ve value . See Note 1 Not Available [facility] [address], [address], 06/17/2024 15:07:44 06/08/19 25 06/17/2024 DRUG TOX MONIT ORING OPIAT ES EXPAN DED QN, U hydromorphon e NEGATI VE NG/mL <50 See Note 1 Not Available [facility] [place] [facility] [address], [place], [address], 06/17/2024 15:07:44 06/08/19 25 06/17/2024 DRUG TOX MONIT ORING OPIAT ES EXPAN DED QN, U morphine NEGATI VE NG/mL <50 See Note 1 Not Available [facility] [place] [facility] [address], [place], [address], 06/17/2024 15:07:44 06/08/19 25 06/17/2024 DRUG TOX MONIT ORING OPIAT ES EXPAN DED QN, U norhydrocodo ne NEGATI VE NG/mL <50 See Note 1 Not Available [facility] [place] [facility] [address], [place], [address], 06/17/2024 15:07:44 06/08/19 25 06/17/2024 DRUG TOX MONIT ORING OPIAT ES EXPAN DED QN, U noroxycodone 4695 NG/mL <50 high See Note 1 Not Available [facility] [place] [facility] [address], [place], [address], 06/17/2024 15:07:44 06/08/19 25 06/17/2024 DRUG TOX MONIT ORING OPIAT ES EXPAN DED QN, U oxycodone 407 NG/mL <50 high See Note 1 Not Available [facility] [place] [facility] [address], [place], [address], 06/17/2024 15:07:44 06/08/19 25 06/17/2024 DRUG TOX MONIT ORING OPIAT ES EXPAN DED QN, U oxymorphone 467 NG/mL <50 high See Note 1 Not Available [facility] [place] [facility] [address], [address], 06/17/2024 15:07:44 06/08/19 25 06/17/2024 DRUG TOX MONIT ORING OPIAT ES EXPAN DED QN, U Unknown Analyte See Note 2 Note 1 This test was devel oped and its rafia tical perfo rmanc e srikanth cteri stics have been deter mined by [facility]. It has not been clear ed or appro divine by the FDA. This assay has been valid ated pursu ant to the CLIA regul ation s and is used for clini clare purpo ses. Note 2 This drug testi ng is for medic al treat ment only. Rafia sis was perfo rmed as non-f orens ic testi ng and these resul ts shoul d be used only by healt hcare provi ders to rende r diagn osis or treat ment, or to monit or progr ess of medic al condi tions . For silvia tance with inter preti ng these drug resul ts, pleas e conta ct a [facility] Toxic ology Speci alist : [phone] ( [phone] ), M-F, 8am-6 pm EST. Not Available [facility] [place] [facility] [address], [address], 06/17/2024 15:07:44 06/15/19 25 06/18/2024 MICRO ALBUM IN/CR EATIN INE RATIO PANEL , URINE microalbumin 7.5 mg/L 1.3-20 .0 Not Available [address], [address], 06/18/2024 09:44:14 06/15/19 25 06/18/2024 MICRO ALBUM IN/CR EATIN INE RATIO PANEL , URINE creatinine urine 167.3 mg/dL 30.0-1 25.0 high Not Available [address], [address], 06/18/2024 09:44:14 06/15/19 25 06/18/2024 MICRO ALBUM IN/CR EATIN INE RATIO PANEL , URINE microalb/cre at ratio 4.5 mg/g_ creat 0.0-29 .0 Not Available [facility] [address] [facility], [place], [address], 06/18/2024 09:44:14 08/22/19 24 08/12/2023 US, lower extre mity No observ ation record ed. zohaib Rodriguez [facility] [address], [place], [address], 08/22/2023 17:55:21 09/09/19 24 09/08/2023 trans -thor acic echoc ardio gram (TTE) (PROC ) No observ ation record ed. LUCHO Rodriguez Cardiovascutyrone r [address], [place], [address], 09/15/2023 23:19:09 09/26/19 24 09/22/2023 US, lower extre mity No observ ation record ed. zohaib Rodriguez [facility] [address], [place], [address], 09/28/2023 17:07:55 02/07/20 24 02/07/2024 XR, chest CLINIC AL HISTOR Y: Cough. TECHNI QUE: Fronta l view and latera l view of the chest obtain ed. COMPAR ALEX: 023, 021. [address] by report . FINDIN GS: There is a left-s ided cardia c conduc tion device . The patien t is status post valve replac ement. The heart is normal in size and config uratio n.Ther e is no hilar or medias tinal enlarg ement. There is a hiatal hernia . There is no focal lung consol idatio n. There are promin ent inters titial markin gs with a subtle band of increa sed densit y in the midpor tion of the right lung. The bony thorax is intact . IMPRES ANTHONY: 1. Persis tent increa sed inters titial densit y. New band of densit y in the mid-po rtion of the lung. Ground glass opacit ies and tree-i n-bud nodula rity were noted on the patien t's [address] 2. Hiatal hernia . Readin g Physic bebo: Claire Pierre ms [facility] (Imaging) [address] [place], [address], 02/07/2024 17:01:34 02/08/20 24 02/08/2024 US, head + neck, soft tissu e CLINIC AL HISTOR Y: Right- sided neck mass TECHNI QUE: 2D Sonogr aphy of the neck perfor med. COMPAR ALEX: None. FINDIN GS: The skin and subcut aneous tissue s appear unrema rkable . There is no suspic ious mass or shadow ing. There is a 0.7 x 0.3 x 0.7 cm right level 1 lymph node. The lymph node is hetero geneou s howeve r the hilum appear s echoge janeen. Cortic al thickn ess reache s approx imatel y 2 mm. IMPRES ANTHONY: Small right level 1 lymph node in the area of the patien t's palpab le lump. Examin ation otherw ise unrema rkable . Readin g Physic bebo: Claire Pierre ms [email or web address] [facility] (Imaging) [address] [place], [address], 02/10/2024 12:44:11 06/02/19 25 06/01/2024 XR, lumba r spine No observ ation record ed. [email or web address] [place] [address], [place], [address], 06/04/2024 08:14:14 Result Notes None recorded. Problems Name Problem SNOMED Code Status Onset Date Resolution Date Notes Provider Name and Address Organization Details Recorded Time Low back pain 091493698 Active LUZMARIA Dao [address] [place] [address], [phone] , [facility] 5 11:11:02 Chronic low back pain 239752814 Active LUZMARIA Dao [address] [place] [address], [phone] , [facility] 5 11:11:02 Seasonal allergic rhinitis 943155148 Active LUZMARIA Dao [address] [place] [address], [phone] , [facility] 4 23:35:39 Depressi ve disorder 96370052 Completed 09/07/2022 Removal Reason: mild coded 06/10/21 RICK Ward, [facility] 3 08:27:41 Chronic obstruct saundra pulmonar y disease 20956620 Active 2018 LUZMARIA Dao [address] [place] [address], [phone] , [facility] 9 16:23:07 Hyperlip idemia 63261495 Active 2020 LUZMARIA Dao [address] [place] [address], [phone] , [facility] 1 11:01:33 Transien t cerebral ischemia 401583599 Active 2021 SHAMIKA Gamez [address] [place] [address], [phone] , [facility] 2 16:39:09 Impaired mobility 71877300 Active 2021 LUZMARIA Dao [address] [place] [address], [phone] , [facility] 2 16:32:11 Opioid dependen ce 42782988 Active 2022 coded 06/10/21 Wellness visit RICK Ward, [facility] 3 08:31:11 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 Active 2022 coded 06/10/21 Wellness visit RICK Ward, [facility] 3 08:31:36 Chronic kidney disease stage 3 657350076 Active 04/11/ 2023 GFR = 39.8, BMP 2/2/23 Kelly Morales LPN null, [facility] 3 08:33:54 Aortic valve stenosis 99240499 Active 2023 Per [facility] discharg e summary 07/30/23, Olinda Turner RN null, [facility] 4 13:55:27 Transcat heter aortic valve implanta tion Active 2023 Per [facility] discharg e summary 07/30/23, Olinda Turner RN null, [facility] 4 13:52:09 Benign essentia l hyperten anthony 1703675 Active 2023 per pcp notes Damaris Nieto RN null, [facility] 4 11:14:49 Problem Notes None recorded. Procedures Surgical History Date Name Laterality Status Provider Name and Address Organization Details Recorded Time 11/11/19 24 Medicare Wellness Visit completed Trice Gallego [facility] 11/11/2023 15:25:17 08/17/19 24 Post hospital/SNF follow-up/Transiti onal Care completed Edwin Bee [facility] 08/17/2023 16:32:44 10/14/19 23 Medicare Wellness Visit completed India Peck [facility] 10/13/2022 14:38:42 09/11/19 23 Punch Biopsy completed Tyler Garzon MD [address] [place] [address], [id number] [place] [address] 09/17/2022 13:41:56 06/10/19 22 Medicare Wellness Visit completed Kisha Martinijulien [facility] 06/10/2021 11:24:36 06/10/19 22 Alcohol use screening completed Kisha [facility] 06/10/2021 11:24:36 06/10/19 22 Cardiovascular disease risk reduction [facility] 06/10/2021 11:24:36 01/26/20 19 Nebulizer Tx completed Debora Saha [facility] 01/25/2019 15:18:08 03/04/20 15 Medicare Wellness Visit completed Mili Mack LPN [facility] 03/04/2015 14:32:11 09/23/19 12 Medicare Wellness Visit completed Tahira Melo MA [facility] 09/23/2011 15:40:00 transcatheter aortic valve implantation completed SHAMIKA Gamez [address] [place] [address], [phone], [place] [facility] 09/15/2023 23:19:01 Imaging Results Imaging Date Name Status LastModified by Organization Details LastModified Time 08/12/2023 US, lower extremity completed [facility] [address], [place], [address], 08/22/2023 17:55:21 09/08/2023 trans-thoracic echocardiogram (TTE) (PROC) completed [facility] [address], [place], [address], 09/15/2023 23:19:09 09/22/2023 US, lower extremity completed [facility] [address], [place], [address], 09/28/2023 17:07:55 02/07/2024 XR, chest completed [facility] [address], [place], [address], 02/07/2024 17:01:34 02/08/2024 US, head + neck, soft tissue completed [email or web address] [facility] ([facility]) [address] [place], [address], 02/10/2024 12:44:11 06/01/2024 [facility] [place] [address] [address] [facility], [place], [address], 06/04/2024 08:14:14 Procedure Notes None recorded. Medical Equipment None Reported. Allergies No known drug allergies Medications Name Sig Start Date Stop Date Status Note LastModified by Organization Details LastModified Time magic mouthwash active 4- prn, daughter is unsure if she takes TR/RMA not taking 11/11/23 LL Not Available Not Available Not Available amoxicill in 500 mg capsule TAKE 4 CAPSULES BY MOUTH 1 HOUR PRIOR TO ALL DENTAL APPTS active Not Available Not Available No t Available fentanyl 50 mcg/hr transderm al patch Apply 1 patch every 72 hours by transder mal route. 12/15 completed Not Available Not Available Not Available venlafaxi ne ER 75 mg capsule,e xtended release 24 hr TAKE THREE CAPSULES BY MOUTH DAILY AT BEDTIME active Not Available Not Available No t Available doxycycli ne hyclate 100 mg capsule TAKE ONE CAPSULE BY MOUTH TWICE A DAY FOR 7 DAYS 10/13 completed Not Available Not Available Not Available venlafaxi ne 75 mg tablet Take 3 tablets every day by oral route at bedtime for 90 days. 05/18 completed Not Available Not Available Not Available atorvasta tin 10 mg tablet TAKE ONE TABLET BY MOUTH EVERY DAY active Not Available Not Available No t Available azithromy owen 250 mg tablet TAKE 2 TABLETS BY MOUTH ON DAYS ONE THEN TAKE 1 TABLET BY MOUTH DAILY FOR 4 DAYS 11/18 completed Not Available Not Available Not Available ibuprofen 800 mg tablet TAKE 1 TABLET BY MOUTH EVERY 8 HOURS 02/28 completed not taking 02/28/23 oad Not Available Not Available Not Available alprazola m 1 mg tablet Take 1 tablet(s ) 3 times a day by oral route. 12/19 completed on Clonazep am Not Available Not Available Not Available Lidocaine Viscous 2 % mucosal solution active 11/07/19 24-does not know if mom uses TR/RMA not taking 11/11/23 LL Not using currentl y - keep on list 12/16/23 drm Not Available Not Available Not Available prednison e 20 mg tablet TAKE 2 TABLET BY MOUTH EVERY DAY FOR 5 DAYS 09/10 completed Not Available Not Available Not Available clonazepa m 0.5 mg tablet Take 1 tablet 3 times a day by oral route for 30 days. 01/26 completed Not Available Not Available Not Available quetiapin e 200 mg tablet TAKE ONE TABLET BY MOUTH EVERY EVENING AT BEDTIME active Not Available Not Available No t Available olanzapin e 5 mg tablet TAKE 1 TABLET BY MOUTH EVERY DAY 2013 active Not Available Not Available Not Avai lable amlodipin e 5 mg tablet Take 1 tablet every day by oral route. 05/18 completed ankle swelling Not Available Not Available Not Available amoxicill in 500 mg tablet TAKE TWO TABLETS BY MOUTH NOW, THEN TAKE ONE TABLET BY MOUTH EVERY 8 HOURS UNTIL GONE active Not Available Not Available No t Available oxycodone 15 mg tablet TAKE 1 TABLET BY MOUTH DAILY FOR 5 DAYS 11/02 completed Not Available Not Available Not Available oxycodone -acetamin ophen 5 mg-325 mg tablet TAKE 1- 2TABLET BY ORAL ROUTE EVERY 8 HOURS NEEDED for 28 days 12/15 completed Not Available Not Available Not Available amoxicill in 875 mg tablet TAKE ONE TABLET BY MOUTH TWICE A DAY FOR 7 DAYS 06/08 completed Not Available Not Available Not Available lorazepam 0.5 mg tablet TAKE ONE TABLET PRIOR TO PROCEDUR E NEEDED 12/08 completed Not Available Not Available Not Available meclizine 25 mg tablet Take 1 tablet twice a day by oral route for 10 days. 02/16 completed Not Available Not Available Not Available levothyro xine 50 mcg tablet TAKE 1 TABLET BY MOUTH EVERY DAY FOR 6 DAYS OF THE WEEK, AND TAKE 1 AND 1/2 TABLETS BY MOUTH ONE DAY OF THE WEEK active Not Available Not Available No t Available cephalexi n 500 mg capsule TAKE ONE CAPSULE BY MOUTH THREE TIMES A DAY FOR 7 DAYS 04/19 completed not taking 02/28/23 oad Not Available Not Available Not Available prednison e 50 mg tablet TAKE ONE TABLET BY MOUTH EVERY DAY IN THE MORNING FOR 5 DAYS 10/13 completed Not Available Not Available Not Available Arthrotec 50 mg-200 mcg tablet,fi lm-coated Take 1 tablet twice a day by oral route for 90 days. 05/08 completed Not Available Not Available Not Available gabapenti n 300 mg capsule TAKE ONE CAPSULE BY MOUTH THREE TIMES A DAY NEEDED active Not Available Not Available No t Available omeprazol e 20 mg capsule,d elayed release TAKE ONE CAPSULE BY MOUTH EVERY DAY active Not Available Not Available No t Available morphine ER 15 mg tablet,ex tended release Take 1 tablet every day by oral route for 28 days. 02/07 completed on 02/08/12 pt reports she stopped taking her morphine Not Available Not Available Not Available mupirocin 2 % topical ointment APPLY ONE APPLICAT ION EXTERNAL THREE TIMES A DAY TO AFFECTED AREA FOR 5 DAYS 11/06 completed not taking 02/28/23 oad Not Available Not Available Not Available furosemid e 20 mg tablet 1 tablet in AM active 4- only prn, due to swelling per daughter TR/RMA not taking 11/11/23 LL 12/16/23 drm prn Not Available Not Available Not Available MS Contin 30 mg tablet,ex tended release Take 1 tablet every 8 hours by oral route for 28 days. 01/24 completed Not Available Not Available Not Available metoprolo l succinate ER 25 mg tablet,ex tended release 24 hr TAKE ONE TABLET BY MOUTH EVERY DAY IN THE EVENING active Not Available Not Available No t Available zolpidem 10 mg tablet Take 1 tablet(s ) every day by oral route for 30 days. 2011 active Not Available Not Available Not Avai lable albuterol sulfate HFA 90 mcg/actua tion aerosol inhaler INHALE 2 PUFFS INTO THE LUNGS EVERY 6 HOURS NEEDED FOR WHEEZING . active Not Available Not Available No t Available morphine ER 15 mg/12hr tablet,ex tended release Take 1 tablet every 12 hours by oral route for 14 days. 09/09 completed Not Available Not Available Not Available cefdinir 300 mg capsule Take 1 capsule every 12 hours by oral route. 11/06 completed not current 07/01/23 tb Not Available Not Available Not Available fluticaso ne propionat e 50 mcg/actua tion nasal spray,juventino pension Inhale 1 spray every day by intranas al route for 30 days. 12/22 completed 12/13/16- pt no longer taking.s g Not Available Not Available Not Available lisinopri l 2.5 mg tablet TAKE ONE TABLET BY MOUTH EVERY DAY 02/06 completed not taking 02/07/24 am Not Available Not Available Not Available amoxicill in 875 mg-potass ium clavulana te 125 mg tablet Take 1 tablet every 12 hours by oral route for 7 days. 06/08 completed Not Available Not Available Not Available oxycodone 5 mg tablet Take 1 tablet(s ) by mouth every 4 hours as need for back pain-lum bar levoscol iosis for 30 days 11/05 completed Not Available Not Available Not Available Adult Low Dose Aspirin 81 mg tablet,de layed release Take 1 tablet every day by oral route. active Per [facility] discharg e summary 07/30/23, reconcil ed with pt daughter Not Available Not Available Not Available Vitamins and Minerals tablet ONCE A DAY 12/22 completed Not Available Not Available Not Available SennaGen 8.6 mg tablet Take 2 tablets every day by oral route. active Not Available Not Available No t Available ciproflox acin 0.3 %-dexamet hasone 0.1 % ear drops,juventino pension INSTILL 4 DROPS IN RIGHT EAR TWO TIMES A DAY FOR 7 DAYS 04/19 completed not taking 02/28/23 oad Not Available Not Available Not Available Spiriva with HandiHale r 18 mcg and inhalatio n capsules Inhale 1 capsule every day by inhalati on route for 30 days. 06/10 completed Not Available Not Available Not Available gabapenti n 300 mg tablet Take 1 tablet every day by oral route for 15 days. 03/17 completed Not Available Not Available Not Available Ambien CR 12.5 mg tablet,ex tended release Take 1 tablet every day by oral route for 90 days. 05/08 completed Not Available Not Available Not Available chlorhexi dine gluconate 0.12 % mouthwash RINSE MOUTH WITH 15 MLS, HOLD FOR 30 SECONDS, AND SPIT OUT TWICE DAILY FOR 7 DAYS. START THE DAY AFTER SURGERY. active Not Available Not Available No t Available morphine active er 15 mg 1 tab bid Not Available Not Available Not Available oxycodone active 5 mg imm rel tab daily Not Available Not Available Not Available calcium ONE A DAY 12/22 completed Not Available Not Available Not Available quetiapin e 11/05 completed Not Available Not Available Not Available amlodipin e 11/05 completed 5mg 1qd Not Available Not Available Not Available prednison e active Not Available Not Available Not Available gabapenti n 3 capsules daily active Not Available Not Available No t Available Advair HFA 45 mcg-21 mcg/actua tion aerosol inhaler Inhale 2 puffs twice a day by inhalati on route for 90 days. 06/10 completed Not Available Not Available Not Available quetiapin e 50 mg tablet TAKE ONE TABLET BY MOUTH THREE TIMES A DAY NEEDED active Not Available Not Available No t Available budesonid e-formote rol HFA 80 mcg-4.5 mcg/actua tion aerosol inhaler Inhale 2 puffs twice a day by inhalati on route for 30 days. 06/10 completed Not Available Not Available Not Available oxycodone 20 mg tablet TAKE 1/2 TABLET (20 MG) 3 TIMES A DAY FOR 28 DAYSD NF 01/22/21* 02/03 completed Not Available Not Available Not Available oxycodone 10 mg tablet TAKE 1 TABLET BY MOUTH THREE TIMES DAILY FOR 28 DAYS active Not Available Not Available No t Available zolpidem 10 mg sublingua l tablet Place 1 tablet every day by sublingu al route. 2011 active Not Available Not Available Not Avai lable levothyro xine 50 mcg capsule Take 1 capsule every day by oral route. 11/06 completed Per [facility] discharg e summary 07/30/23, reconcil ed with pt daughter duplicat ed. Not Available Not Available Not Available diclofena c potassium 50 mg oral powder packet Take by oral route. 12/22 completed 50-0.2mg 1t Not Available Not Available Not Available buprenorp ridge 20 mcg/hour weekly transderm al patch APPLY 1 PATCH TOPICALL Y EVERY 7 DAYS FOR 28 DAYS active Not Available Not Available No t Available buprenorp ridge 10 mcg/hour weekly transderm al patch tAKE AND APPLY 1 PATCH WEEKLY 11/24 completed Not Available Not Available Not Available Aerochamb er Plus Flow-Vu USE DIRECTED active Not Available Not Available No t Available naloxone 4 mg/actuat ion nasal spray SPRAY 1ML IN EACH NOSTRIL FOR SUSPECTE D OPOIOD OVERDOSE . REPEAT AFTER 3 MINUTES IF NO OR MINIMAL RESPONSE active Not Available Not Available No t Available Trelegy Ellipta 100 mcg-62.5 mcg-25 mcg powder for inhalatio n INAHLE 1 PUFF INTO THE LUNGS DAILY active Not Available Not Available No t Available Wixela Inhub 250 mcg-50 mcg/dose powder for inhalatio n Inhale 1 puff twice a day by inhalati on route for 30 days. 06/10 completed Not Available Not Available Not Available Sodium Fluoride 5000 Plus 1.1 % dental cream USE PASTE IN PLACE OF TOOTHPAS TE AT BEDTIME, BRUSH FOR 2 MINUTES THEN EXPECTOR ATE active Not Available Not Available No t Available Vitals Date Recorded Body height Oxygen saturation Oxygen saturation in Arterial blood by Pulse oximetry Heart rate Body mass index (BMI) Body weight Systolic blood pressure Diastolic blood pressure Provider Name and Address Organization Details Last Updated DateTime 4 157.48 cm 95 % 95 % 78 /min 28 kg/m2 86520.6 3 g 138 mm[Hg] 66 mm[facility]Hg[facility] 16[facility]33 Date Recorded Body height Body mass index (BMI) Body weight Heart rate Oxygen saturation Oxygen saturation in Arterial blood by Pulse oximetry Systolic blood pressure Diastolic blood pressure Provider Name and Address Organization Details Last Updated DateTime 4 157.48 cm 27.3 kg/m2 00371.2 6 g 62 /min 95 % 95 % 130 mm[Hg] 76 mm[Hg] Trice Gallego [facility] 4 16:05:43 Date Recorded Body temperature Provider Name a tn Address Organization Details Last Updated DateTime 11/11/2023 97.6 [degF] SHAMIKA Gamez [address] [place] [address], [phone], [facility] 11/11/2023 17:11:47 Date Recorded Body height Heart rate Body mass index (BMI) Body weight Systolic blood pressure Diastolic blood pressure Provider Name and Address Organization Details Last Updated DateTime 4 157.48 cm 68 /min 27.3 kg/m2 16388.2 6 g 100 mm[Hg] 48 mm[Hg] Crow Godoy CMA [facility] 4 16:07:30 Date Recorded Heart rate Systolic blood pressure Diastolic blood pressure Systolic blood pressure Diastolic blood pressure Provider Name and Address Organization Details Last Updated DateTime 12/16/2023 78 /min 80 mm[Hg] 60 mm[Hg] 80 mm[Hg] 60 mm[Hg] SHAMIKA Gamez [address] [place] [address], [phone], [facility] 4 16:34:41 Date Recorded Body height Body mass index (BMI) Body weight Body temperature Heart rate Oxygen saturation Oxygen saturation in Arterial blood by Pulse oximetry Systolic blood pressure Diastolic blood pressure Provider Name and Address Organization Details Last Updated DateTime 4 157.48 cm 27.3 kg/m2 09593.2 6 g 97.9 [degF] 83 /min 98 % 98 % 90 mm[Hg] 52 mm[Hg] India Peck [facility] 4 15:11:53 Date Recorded Body height Body mass index (BMI) Body weight Heart rate Oxygen saturation Oxygen saturation in Arterial blood by Pulse oximetry Systolic blood pressure Diastolic blood pressure Provider Name and Address Organization Details Last Updated DateTime 5 154.94 cm 26.8 kg/m2 69573.1 2 g 77 /min 92 % 92 % 162 mm[Hg] 70 mm[Hg] Mia Jensen LPN [facility] 5 10:47:57 Date Recorded Body height Body mass index (BMI) Body weight Heart rate Oxygen saturation Oxygen saturation in Arterial blood by Pulse oximetry Systolic blood pressure Diastolic blood pressure Provider Name and Address Organization Details Last Updated DateTime 5 154.94 cm 27.2 kg/m2 49681.0 2 g 78 /min 92 % 92 % 144 mm[Hg] 88 mm[Hg] Megan Albarran [facility] 5 14:15:16 Date Recorded Systolic blood pressure Diastolic blood pressure Provider Name and Address Organization Details Last Updated DateTime 06/08/2024 136 mm[Hg] 76 mm[Hg] SHAMIKA Gamez [address] [place] [address], [phone], [facility] 06/08/2024 15:00:01 Date Recorded Systolic blood pressure Diastolic blood pressure Provider Name and Address Organization Details Last Updated DateTime 11/07/2023 162 mm[Hg] 79 mm[Hg] Larisa Crespo [facility] 11/08/2023 10:24:54 Social History Question Answer Notes LastModified by Organizat ion Details LastModified Time Tobacco Smoking Status Former Smoker quit 20 years ago // heavy for 20 years ARA Fay, [facility] 12/27/2013 15:51:57 What Is Your Level Of Alcohol Consumption? Occasional [email or web address] Information not available 05/29/2014 What Is Your Level Of Caffeine Consumption? Heavy 2-3 Cups / Day Information not available 10/13/2022 How Much Tobacco Do You Chew? None Information not available 12/31/2014 Are You Currently Employed? No Information not available 11/11/2023 What Type Of Diet Are You Following? REGULAR Information not available 12/31/2014 Do You Or Have You Ever Used E-cigarettes Or Vape? Never Used Electronic Cigarettes [email or web address] Information not available 02/12/2019 Education 2 Year College Information not available 08/27/2011 What Is The Highest Grade Or Level Of School You Have Completed Or The Highest Degree You Have Received? [id number] Information not available 11/11/2023 What Is Your Occupation? Retired Information not available 08/27/2011 Have There Been Any Changes To Your Family Or Social Situation? No Information not available 11/11/2023 When Did You Quit Smoking? 16+yearssince lastcigarette Information not available 12/31/2014 Are There Any Guns Present In Your Home? No Information not available 08/27/2011 Do You Use Insect Repellent Routinely? Yes Information not available 06/10/2021 Live Alone Or With Others? With Others Information not available 08/27/2011 CSRP - Narcotics Yes CLAUDIA JENYICK CONTRACT NARCOTIC 06/08/2024 Information not available 11/17/2020 CSRP Contract Signed And Discussed Yes Information not available 11/17/2020 Patient Has Health Care Proxy Signed And In Chart Yes [email or web address] Information not available 11/17/2022 CSRP - Stimulants No Information not available 12/31/2014 CCM Consent Discussion 01/09/2019 [email or web address] Information not available 01/10/2019 Marital Status [email or web address] Informati on not available 01/25/2019 Mosquito Repellent Used Routinely No Information not available 08/27/2011 What Was The Date Of Your Most Recent Tobacco Screening? 06/08/2024 [email or web address] Information not available 06/08/2024 How Many Children Do You Have? 3 Information not available 08/27/2011 What Is Your Current Pack Years? [email or web address] [email or web address] Information not available 12/31/2014 What Is Your Relationship Status? Information not available 11/11/2023 Do You Use Your Seat Belt Or Car Seat Routinely? Yes Information not available 06/10/2021 Seat Belts Used Routinely Yes Information not available 08/27/2011 Smoke Alarm In Home Yes Information not available 08/27/2011 Do You Have Smoke And Carbon Monoxide Detectors In Your Home? Yes Information not available 06/10/2021 Are You Passively Exposed To Smoke? No Information not available 06/10/2021 Do You Or Have You Ever Used Smokeless Tobacco? Never Used Smokeless Tobacco [email or web address] Information not available 02/12/2019 How Much Tobacco Do You Smoke? No Information not available 12/31/2014 General Stress Level Medium Information not available 12/31/2014 Do You Use Any Illicit Or Recreational Drugs? No Information not available 06/10/2021 Do You Use Sunscreen Routinely? No Information not available 10/13/2022 How Many Years Have You Smoked Tobacco? 20 [email or web address] Information not available 02/12/2019 Do You Or Have You Ever Used Any Other Forms Of Tobacco Or Nicotine? No Information not available 05/18/2021 How Many Days In The Past Year Have You Consumed 4 Or More Drinks? 0 Information not available 06/10/2021 Sex: Female Functional Status Question Answer Note LastModified by Organization D etails LastModified Time What is your exercise level? None Information not available 10/13/2022 Mental Status None recorded. Family History Nothing Reported. Medical History Condition Response Anxiety Y Depression Y Gynecological HistoryNo gynecological history recorded. Obstetrics History GPAL:G 0 P 0 0 0 0 Immunizations Vaccine Type Date Status Note Provider Jasen velasco and Address Organization Details Recorded Time Td (adult), 5 Lf tetanus toxoid, preservative free, adsorbed 2 completed Not Available [facility] 06/16/2019 02:34:50 Influenza, split virus, trivalent, preservative 2 completed Not Available [facility] 06/16/2019 02:18:33 Pneumococcal conjugate PCV 13 5 completed Not Available [facility] 06/16/2019 02:19:44 Influenza, high-dose, trivalent, PF 5 completed Not Available [facility] 06/16/2019 02:39:41 Influenza, split virus, trivalent, preservative 4 completed [facility]RA [facility] 05/29/2014 14:09:56 pneumococcal polysaccharide PPV23 8 completed Not Available [facility] 06/16/2019 02:22:37 Td (adult), 2 Lf tetanus toxoid, preservative free, adsorbed 2 completed LUZMARIA Dao [address] [place] [address], [phone], [facility] 11/22/2021 22:39:11 Influenza, high-dose, quadrivalent, PF 3 completed SHAMIKA Gamez [address] [place] [address], [phone], [facility] 03/03/2023 21:16:51 COVID-19, mRNA, LNP-S, PF, 100 mcg/0.5mL dose or 50 mcg/0.25mL dose 1 completed [facility] 02/17/2021 15:48:37 COVID-19, mRNA, LNP-S, PF, 100 mcg/0.5mL dose or 50 mcg/0.25mL dose 1 completed [facility] 02/17/2021 15:48:53 Influenza, high-dose, trivalent, PF 5 completed SHAMIKA Gamez [address] [place] [address], [phone], [facility] 06/11/2024 10:06:55 COVID-19, mRNA, LNP-S, PF, 30 mcg/0.3 mL dose 1 completed Crow Godoy [facility] 12/16/2023 16:10:33 Influenza, high-dose, quadrivalent, PF 1 completed Crow Godoy CMA null, [facility] 12/16/2023 16:10:33 Influenza, high-dose, quadrivalent, PF 2 completed Crow Godoy CMA null, [facility] 12/16/2023 16:10:33 COVID-19, mRNA, LNP-S, bivalent, PF, 30 mcg/0.3 mL dose 2 completed Crow Godoy CMA null, [facility] 12/16/2023 16:10:33 COVID-19, mRNA, LNP-S, PF, 30 mcg/0.3 mL dose, mayank-sucrose 2 completed Crow Godoy CMA null, [facility] 12/16/2023 16:10:33 COVID-19, mRNA, LNP-S, PF, 50 mcg/0.5 mL 3 completed [facility] 12/16/[facility]23 16:10:33 Past Encounters Encounter ID Performer Location Encounter Start Date Encounter Closed Date Diagnosis/Indication Diagnosis SNOMED-CT Code Diagnosis ICD10 Code Diagnosis Note [id number] [facility], [address] [place] [address] 08/27/2011 09:51:23 08/27/2011 11:05:09 [id number] [facility], [address] [place] [address] 09/23/2011 15:28:51 09/23/2011 16:33:56 [id number] [facility] , [facility] [address] [place] [address] 10/21/2011 11:38:26 10/21/2011 13:19:00 [id number] [facility], [address] [place] [address] 11/08/2011 15:21:25 11/08/2011 16:17:41 [id number] Kelly Gudino MA [facility], [address] [place] [address] 11/25/2011 15:50:01 11/29/2011 14:56:16 [id number] [facility], [address] [place] [address] 12/14/2011 13:17:46 12/16/2011 08:36:47 [id number] LUZMARIA Dao , [facility], [address] [place] [address] 01/03/2012 14:36:49 01/03/2012 16:05:22 [id number] Claudine Kearns MA , [facility], [address] [place] [address] 01/24/2012 15:05:00 01/24/2012 16:58:31 [id number] Claudine Kearns MA , [facility], [address] [place] [address] 02/08/2012 15:09:18 02/09/2012 15:52:59 [id number] Kelly Gudino MA , [facility], [address] [place] [address] 12/01/2013 15:34:06 12/03/2013 11:03:49 Low back pain [id number] Greta Mckinley , [facility], [address] [place] [address] 12/18/2013 16:31:54 12/20/2013 16:08:21 Swelling of lower leg 504085719 Left & discolorat ion along the outer aspect X 1 m Seasonal allergy 348744833 Would like an antibiotic -declined, discussed use of a antihistam ine & Fluticason e as ordered below Memory impairment 899832662 Pt. would like an evaluation w/neuropsy ch-will refer. [id number] Kelly Gudino MA , [facility], [address] [place] [address] 12/25/2013 16:52:04 01/10/2014 08:25:08 Dyspnea 722655173 Concerned for potential CHF w/abnormal BS, cough & BLEE. Pt. examined w/Dr. Batista, will send to [facility] ED for further evaluation & treatment. Telephone report given to hSayne Guevara in ED Edema [id number] To ED f or further evaluation -?CHF Cough [id number] To ED fo r further evaluation -?CHF Depressive disorder 75379421 Med reordered per pt. request [id number] Kelly Gudino MA , [facility], [address] [place] [address] 12/27/2013 15:31:19 12/27/2013 16:31:28 Depressive disorder 44160713 Med reordered per pt. request Chronic low back pain 165127614 med reordered per pt. request, planning to return to [place] in a couple of weeks Pneumonia 348003090 Cont inue on Azithromyc in & Prednisone until completed, if s/s return RTC. Agrees w/plan. Advised to f/u w/her pulmonolog ist in [place] regarding pulmonary nodules found on Chest CT-to obtain a disck of CT to bring w/her. [id number] ARA Rebolledo, [facility], [address] [place] [address] 05/29/2014 13:45:11 05/29/2014 14:43:40 Chronic low back pain 336984520 medication s verified with [facility] as well as by pharmacy in [place]. Med reordered per pt. request, planning to return to [place] in a couple of weeks. plan to follow up with patient when she returns to the area in the summertime . [id number] ARA Rebolledo, [facility], [address] [place] [address] 12/31/2014 13:58:32 01/01/2015 14:35:58 Active or passive immunization 812748287 Chronic low back pain 799097760 medication s verified from pill bottle brought in by pt., will refill for amount suitable until she returns to [place]., script as written below, agrees w/plan. Major depr essive disorder 603755671 Discussed potential use of medication for her s/s. At length discussion about her feeling & concerns about the potential move from [place]. back to this area. [id number] LUZMARIA Dao, [facility], [address] [place] [address] 03/04/2015 13:56:53 03/04/2015 15:12:47 Low back pain 152098493 M54.5 on chronic pain management , will refill when old script from [place] has been brought in Chronic low back pain 27 8183587 M54.5 medication s not brought in by pt, needs to bring in last script, sign CSRP contract & return w/old script before a new script can be filled. Influenza vaccine needed [id number] 106 Z28.3 [id number] LUZMARIA Dao , [facility], [address] [place] [address] 12/13/2016 16:32:25 12/13/2016 17:06:02 Chronic low back pain 065683480 M54.5 Med refilled for 7 day course as written below. Will continue to f/u w/her provider in [place]> when she returns next week. Advised of potential for abuse. Major depr essive disorder 910540450 F32.0 Currently stable [id number] LUZMARIA Dao , [facility], [address] [place] [address] 12/22/2017 08:30:04 12/28/2017 13:25:50 Active or passive immunization 203845039 Z23 Chronic back pain 682895 002 M54.9 Pain med renewed as prescribed by her pain management MD in [place]. To continue w/refills w/Dr. Ledesma when she returns to [place]. Major depr essive disorder 369353163 F32.0 Currently stable, [id number] Seema Montez MD , [facility], [address] [place] [address] 01/09/2019 15:42:00 01/09/2019 16:24:34 Major depressive disorder 935132071 F32.0 Currently stable, Chronic low back pain 27 4260813 M54.5 Med refilled as written below. Will continue to f/u w/her provider in [place]> when she returns . Advised of potential for abuse. Chronic back pain 477401 002 M54.9 Pain med renewed as prescribed by her pain management MD in [place]. To continue w/refills w/Dr. Ledesma when she returns to [place]. Will nee to sign [facility] contract. [id number] Seema Montez MD , [facility], [address] [place] [address] 01/25/2019 14:31:50 01/25/2019 15:33:47 Acute exacerbation of chronic obstructive pulmonary disease 023900792 J44.1 Improved breath sounds post duoneb treatment in office. O2 sat up to 98%.Advise d pt to continue on Advair daily & Albuterol as needed. Discussed proper use of inhalers, timing & technique [id number] Marco Antonio Manley MD , [facility], [address] [place] [address] 02/12/2019 12:04:16 02/12/2019 12:34:37 Opioid dependence 85279617 F11.20 Chronic low back pain 27 1663360 M54.5 Med refilled as written below. Will continue to f/u w/her provider in [place]> when she returns . Advised of potential for abuse. Chronic pain syndrome 37 1072679 G89.4 Post L4 fusion in 2013, ongoing back pain, ongoing use of pain meds as prescribed by her PCP in [place]. Refilled for time period while here in AM visiting her daughter. [id number] LUZMARIA Dao , [facility], [address] [place] [address] 11/05/2020 15:27:08 11/05/2020 16:34:57 Chronic obstructive pulmonary disease 96834829 J44.9 Chronic low back pain 27 2918902 M54.5 Med refilled as written below. Will continue to f/u w/her provider in [place]> when she returns . Advised of potential for abuse. Last filled Oxycodone #75 on 11-02-20. Pain in toe 278907918 M7 9.674 4th R toe [id number] LUZMARIA Dao, [facility], [address] [place] [address] 11/17/2020 14:00:23 11/17/2020 15:08:25 Dyspnea 331307483 R06.00 Ongoing , increased w/activity . + COPD, will obtain a CXR Low back pain 787655370 M54.5 on chronic pain management , will refill scripts, CSRP contract discussed & signed w/copy given to pt. Chronic ob structive pulmonary disease 16490128 J44.9 CXR orderd. Start Spiriva as written below. [id number] LUZMARIA Dao, [facility], [address] [place] [address] 02/17/2021 15:35:39 02/17/2021 16:22:58 Chronic pain 18980405 R52 Will need to have her pian meds filled by in [place] while there. Long-term current use of opiate analgesic drug 5291088159 84188 Z79.891 Chronic ob structive pulmonary disease 88731407 J44.9 Has upcoming appointmen t with pulmonolog ist in April Depressive disorder 3548 9007 F32.9 Med reordered per pt. request Long-term drug therapy 765254799 Z79.198 [id number] LUZMARIA Dao, [facility], [address] [place] [address] 05/18/2021 11:56:07 05/26/2021 15:02:46 Major depressive disorder 140201479 F32.0 Currently stable, Chronic pain 92882223 R5 2 Unresolved Long-term current use of opiate analgesic drug 6053310944 05778 Z79.891 Long-term drug therapy 189988182 Z79.899 No med changes made at this visit Essential hypertension 04831834 I10 BP elevated, admits to not taking her BP med, has access to BP monitoring device & advised to check BP @ home2 hours after taking BP med.Report readings > 140/90 Chronic ob structive pulmonary disease 63201426 J44.9 Has upcoming appointmen t with pulmonolog ist in 2021HX of oxygen use @ night @ 2.5 -3 LPM, O2 95-96 %, no change in O2 sat when doing test w/ambulati on Benign ess ential hypertension 8339330 I10 [id number] LUZMARIA Dao, [facility], [address] [place] [address] 06/10/2021 11:22:48 06/14/2021 16:31:37 Adult health examination 072888568 Z00.00 86 yo F seen for Virtual Medicare Wellness visit, labs ordered-no record of lipids, on chronic pain meds for back pain, has now moved permanentl y from [place]., living @ [facility] w/. HCM needs discussed. Counseling 273485861 Z71 .9 including cardiovasc ular risk reduction counseling Depression screening 171 268233 Z13.31 depression screening tool administer ed, entered into emr, scored and discussed, time greater than 7.5 minutes Screening for alcohol abuse 369822669 Z13.39 Mixed hyperlipidemia 267 120350 E78.2 Lipids ordered.Co ntinue to work on diet and exercise as discussed Chronic pain 81009245 R5 2 Unresolved Long-term current use of opiate analgesic drug 8728600094 05702 Z79.891 Aphthous u lcer of mouth 850878908 K12.0 Chlorhexid ine mouthwash ordered as written below Opioid dependence 206732 00 F11.20 Major depr essive disorder 564585973 F32.0 Currently stable, Chronic ob structive pulmonary disease 39539861 J44.9 Has seen pulmonolog ist.Iris giraldo home nightime oxygen test.Miguelito nue on Albuterol inhaler & Trelegy inhaler. [id number] SHAMIKA Gamez FP, [facility], [address] [place] [address] 07/22/2021 16:14:15 07/23/2021 10:16:17 Chronic obstructive pulmonary disease 33384665 J44.9 will start azithromax for COPD flare, in pt using O2, and hx chronic bronchitis - flaring this week. will use O2 throughout day and add albuterol with aerochambe r 2 puffs q 4 hrs. reviewed CBC done this AM -nl WBC and lungs are clear- O2 today id at 94% increase fuids and BUN 24 Heart murmur 00736886 R0 1.1 has ECHO scheduled- will try to sched sooner when pt feeling better. Dyspnea 325639474 R06.00 SUSPECT DUE TO viral illness- r/o covid- had test 7 days ago when symptoms started- recheck, above tx [id number] LUZMARIA Dao , [facility], [address] [place] [address] 11/18/2021 16:31:57 11/19/2021 12:22:06 Chronic pain 33868755 R52 Unresolved . wheelchair ordered d/t decreased ability to ambulate in home Long-term current use of opiate analgesic drug 6184092035 89314 Z79.891 Essential hypertension 30187664 I10 BP stable, has access to BP monitoring device & advised to check BP @ home2 hours after taking BP med.Report readings > 140/90 Mixed hyperlipidemia 267 073235 E78.2 Lipids ordered.Co ntinue to work on diet and exercise as discussed Active or passive immunization 404685910 Z23 [id number] SHAMIKA Gamez FP, [facility], [address] [place] [address] 12/10/2021 15:30:26 12/11/2021 09:13:38 Dizziness 114103549 R42 by hx and exam -suspect BPV, checklabs- pt housebound due to severre dizziness Gastroesop hageal reflux disease 069828262 K21.9 take asa 81 mg in AM with food( HX OF TIA'S), , start omeprazole 20 mg qd [id number] LUZMARIA Dao, [facility], [address] [place] [address] 02/16/2022 16:33:15 02/23/2022 16:21:22 Chronic pain 81856149 R52 Encouraged to continue w/ PT Long-term current use of opiate analgesic drug 0862548608 50112 Z79.891 No med changes made at this time [id number] SHAMIKA Gamez, [facility], [address] [place] [address] 05/17/2022 16:32:46 05/18/2022 16:40:17 Mixed hyperlipidemia 089796824 E78.2 Chronic pain 16274149 R5 2 discussed chronic pain meds can cause hyperalges ia along with s/e;s that pt notes- constipati on, memory decrease Long-term current use of opiate analgesic drug 8817752609 79065 Z79.891 Chronic ki dney disease stage 3 364912412 N18.30 add bmp f/u Hypothyroidism 50898494 E03.9 discussed hyporthyro id and tx- start levothyrox ine- TSH 20- repeat in 6 wks [id number] SHAMIKA Gamez, [facility], [address] [place] [address] 07/12/2022 15:55:36 07/12/2022 16:51:11 Hypoxia 684444157 R09.02 recent pulmonary consult- adding daytime oxygen- pulmonary consult not available as yet Chronic ob structive pulmonary disease 68665072 J44.9 recent pulmonary consult- adding daytime oxygen- pulmonary consult not available as yet Hypothyroidism 91834242 E03.9 discussed hyporthyro id and tx- start levothyrox ine- TSH 20- repeat in 6 wks Low back pain 773877074 M54.50 consider duloxetine instead of effexor to aid in pain mgmt, discussed hyperalges ia may be increasing pain level, improvemen t in thyroid and oxygen also may be contributi ng to increase pain [id number] HAYDEN Anne, [facility], [address] [place] [address] 07/29/2022 10:38:52 07/29/2022 11:27:12 Acute exacerbation of chronic obstructive pulmonary disease 796570254 J44.1 Discussed risks/bene fits of prednisone and we will start 40mg qd x 5 days.F/U for worsening or failure to improve within 2-3 days. Discussed risks/bene fits of antibiotic s and they may be indicated but I do not know Sally's history well. I rec'd resuming albuterol as needed, which she hasn't been using, as well as resuming supplement al oxygen as advised by pulmonolog y, which she also has not been doing.Pt's daughter seemed very upset and distressed about not getting an antibiotic for Sally today and stated how upset she was about this based on her father being on hospice. She stated how cruel I was being by not prescribin g an antibiotic . I reviewed the potential harms of antibiotic s and advised monitoring for a response to prednisone , albuterol and oxygen prior to considerin g an antibiotic Rx. [id number] MD SELVIN Duke, [facility], [address] [place] [address] 09/10/2022 14:16:17 09/10/2022 16:37:48 Skin lesion 57386578 L98.9 s/p punch biopsy wound precaution s [id number] SHAMIKA Gamez, [facility], [address] [place] [address] 10/13/2022 14:23:31 10/13/2022 17:20:29 Chronic kidney disease stage 3 022521946 N18.30 add bmp f/u Chronic ob structive pulmonary disease 63262613 J44.9 recent pulmonary consult- adding daytime oxygen- pulmonary consult not available as yet Mild major depression 87 126395 F32.0 Opioid dependence 603451 00 F11.20 Postmenopausal state 764 82669 Z78.0 Chronic pain 98503077 R5 2 discussed chronic pain meds can cause hyperalges ia along with s/e;s that pt notes- constipati on, memory decrease Long-term current use of opiate analgesic drug 3310047730 04252 Z79.891 pt conts with persistant pain despite pain meds would like to consider pain mgmt clinic - discussed hyperalges ia and slow titration Adult heal th examination 179031858 Z00.00 Depression screening 171 552043 Z13.31 depression screening tool administer ed Screening for alcohol abuse 425700438 Z13.39 Alcohol use screening tool administer ed Chronic low back pain 27 4715838 M54.50 Hypothyroidism 59297641 E03.9 discussed hyporthyro id and tx- start levothyrox ine- TSH 20- repeat in 6 wks Pain of le ft hip joint 4317069941 91429 M25.552 Chronic back pain 132771 002 G89.29 Aortic valve stenosis 60 819333 I35.0 recent sob, reviewed cbc- with nl hgb- elevated eosinophil s, denoes chest pain Low back pain 181775237 M54.50 consider duloxetine instead of effexor to aid in pain mgmt, discussed hyperalges ia may be increasing pain level, improvemen t in thyroid and oxygen also may be contributi ng to increase pain Depressive disorder 3548 9007 F32.A [id number] Seema Montez MD , [facility], [address] [place] [address] 09/08/2022 13:53:15 09/08/2022 15:00:42 Chronic obstructive pulmonary disease 11884402 J44.9 treated forCOPDwor sening fatigue, SOB from baseline for few weeksrecen t treatment for bronchitis 1 mo agotx prednisone , doxycyclin e for current symptoms, ppx Acute laryngitis 4389487 J04.0 hoarse voice, difficulty swallowing for past few daysvery dry mouth and throatenc to increase fluid intakesusp ect viral illness cause [id number] Tyler Garzon MD , [facility], [address] [place] [address] 09/17/2022 13:32:44 09/17/2022 15:55:22 Chronic kidney disease stage 3 003738796 N18.30 Seborrheic keratosis 394 528127 L82.1 s/p biopsy sutures removed healing well [id number] Traci Leija DO FP, [facility], [address] [place] [address] 12/08/2022 13:59:36 12/08/2022 14:51:23 Cough 59373079 R05.9 Patient presents with cough.Uncl ear etiology.F ollow up if not improving or with worsening symptoms. Hemoptysis 80168192 R04. 2 Unclear etiology. Will get chest xray. Will order CT chest for further eval. Early satiety 209840744 R68.81 Unclear etiology. See above. plan. [id number] SHAMIKA Gamez , [facility], [address] [place] [address] 02/28/2023 14:59:54 02/28/2023 17:49:53 Chronic pain 79628778 R52 discussed chronic pain meds can cause hyperalges ia along with s/e;s that pt notes- constipati on, memory decrease Long-term current use of opiate analgesic drug 3962983876 19157 Z79.891 pt conts with persistant pain despite pain meds would like to consider pain mgmt clinic - discussed hyperalges ia and slow titration Long-term current use of drug therapy 394893313 Z79.899 Low back pain 092309521 M54.50 consider duloxetine instead of effexor to aid in pain mgmt, discussed hyperalges ia may be increasing pain level, improvemen t in thyroid and oxygen also may be contributi ng to increase pain Essential hypertension 94492642 I10 elevated- will track BP readings- f/u with KALEB readings in coming month Chronic ob structive pulmonary disease 42031048 J44.9 recent pulmonary consult- adding daytime oxygen- pulmonary consult not available as yet Hypothyroidism 30059530 E03.9 discussed hyporthyro id and tx- start levothyrox ine- TSH 20- repeat in 6 wks Elevated blood-pressure reading without diagnosis of hypertension 856538626 R03.0 track daily BP's- f/u with results- ongoing eval re aorth=ic stenosis Active or passive immunization 569588694 Z23 [id number] Tyler Garzon MD , [facility], [address] [place] [address] 04/19/2023 13:56:09 04/19/2023 14:26:16 Acute bronchitis 62140948 J20.9 Acute bronchitis Explained in detail regarding the etiology of bronchitis along with its associated risks and discussed treatment options.Pr escription for cefdinir 1 capsule twice daily for 7 days was sent to the pharmacy.E ncouraged to stop cefdinir if she feels better in 5 days.Encou raged to use albuterol inhaler as needed for wheezing or chest tightness. Encouraged to stay well hydrated.S he was advised to use oxygen during the day if she were to have low oxygen saturation until she feels better.Enc ouraged to contact the office if she experience s increased shortness of breath, chest pain, or high fever. This note has been generated by Tang DELGADILLO and edited by Trip Gross, Quality Documentat ion Specialist . [id number] SHAMIKA Gamez, [facility], [address] [place] [address] 07/01/2023 07:57:37 07/01/2023 11:43:26 Chronic pain 51603390 R52 discussed chronic pain meds can cause hyperalges ia along with s/e;s that pt notes- constipati on, memory decrease Long-term current use of opiate analgesic drug 9944697789 18950 Z79.891 pt conts with persistant pain despite pain meds would like to consider pain mgmt clinic - discussed hyperalges ia and slow titration Hypothyroidism 42362440 E03.9 discussed hyporthyro id and tx- start levothyrox ine- TSH 20- repeat in 6 wks Chronic ob structive pulmonary disease 79674511 J44.9 reviewed pulmonary consult- cont ellipta- pt finds very helpfulrev iewed albuterol use with using aerochambe r and method of delivery Major depr essive disorder 740053683 F32.0 stable- cont SSRI FOR DEPRESSION AND QUITIAPINE FOR MOOD STABILIZAT ION Opioid dependence 549754 00 F11.20 reviewed - has naltrexone in the home- pain mgmt is stable [id number] SHAMIKA Gamez, [facility], [address] [place] [address] 08/17/2023 16:28:05 08/24/2023 12:13:30 History of aortic valve replacement 0918793671 100 Z95.4 s/p this month from surgery- f/u with cardiology and vascular scheduled Dyspnea on exertion 6084 5006 R06.09 conts, pt questionin g if sl increase since valvular repair surgery this month- cardiology consult 2 days ago- told stable- f/u if any worsening, tolerating furosemide 20 mg qd- bmp 2 days nl- Chronic low back pain 27 0025396 M54.50 pts daughter states pt received letter stating buprenorph ine will no longer be covered after this month- pt needs PA- as she has had adverse reaction in past hx- yrs ago while living in [place]- to fentanyl, morphine continues with severe pain [id number] SHAMIKA Gamez FP, [facility], [address] [place] [address] 11/11/2023 15:32:57 11/11/2023 17:23:49 Adult health examination 834996773 Z00.00 Depression screening 171 196438 Z13.31 depression screening tool administer ed Screening for alcohol abuse 254553187 Z13.39 Alcohol use screening tool administer ed Long-term current use of drug therapy 401194146 Z79.899 Essential hypertension 96760615 I10 BP's up to 180's- start lsinopril- f/u 1 onth Benign ess ential hypertension 3254784 I10 BP not controlled with metoproolo l- had s/e w=to amlodipine - f/u 1 month Low back pain 118909300 M54.50 consider duloxetine instead of effexor to aid in pain mgmt, discussed hyperalges ia may be increasing pain level, improvemen t in thyroid and oxygen also may be contributi ng to increase pain Memory impairment 236360 006 R41.3 will track symptoms, check lab, f/u [id number] SHAMIKA Gamez FP, [facility], [address] [place] [address] 12/16/2023 15:17:17 12/16/2023 20:20:47 Muscle weakness 31065728 M62.81 pulse- no orthostati c symptoms Low blood pressure 03702 003 I95.9 stop lisinopril 2.5 mg due to hypotensiv e- f/u 1 wk with results [id number] ORALIA Matos, [facility], [address] [place] [address] 02/07/2024 15:02:00 02/10/2024 18:05:01 Cough 34085651 R05.9 Xray with ? infiltrate vs worsening of COPDWill treat with abx, advised recheck with Dr Dunn. CXR sent to himCall with worsening sx Mass of neck 471107831 R 22.1 unclear etiology - u/s tomorrow. Dysphagia 51077420 R13.1 0 will see about u/s neck - if unrelated to dysphagia will obtain swallow study. Chronic ki dney disease stage 3 557880355 N18.30 stable Benign ess ential hypertension 0457581 I10 BP is low today - sl increase with standingno t taking furosemide currently and is on low dose beta jesus manuel - HR 3monitor Chronic low back pain 27 0288193 M54.50 on opioids per PCP Chronic ob structive pulmonary disease 29161733 J44.9 worsening - Dr Dunn - sent CXR report Impaired mobility 168997 05 Z74.09 no falls - uses walker [id number] SHAMIKA Gamez , [facility], [address] [place] [address] 06/08/2024 13:57:40 06/12/2024 11:41:48 Chronic pain 45888989 R52 seeing pain mgmt- tx with injections . Long-term current use of opiate analgesic drug 9007308441 43996 Z79.891 pt conts with persistant pain despite pain meds would like to consider pain mgmt clinic - discussed hyperalges ia and slow titration Benign ess ential hypertension 1621865 I10 track BP's Chronic ob structive pulmonary disease 32123004 J44.9 Hyperlipidemia 83522571 E78.5 Low back pain 475843653 M54.50 consider duloxetine instead of effexor to aid in pain mgmt, discussed hyperalges ia may be increasing pain level, improvemen t in thyroid and oxygen also may be contributi ng to increase pain Mild major depression 87 074945 F32.0 Opioid dependence 452970 00 F11.20 reviewed - has naltrexone in the home- pain mgmt is stable Difficulty swallowing 28 7211323 R13.10 Chronic ki dney disease stage 3 677709027 N18.30 add bmp f/u Hypothyroidism 73186470 E03.9 stable Active or passive immunization 208213046 Z23 Elevated blood-pressure reading without diagnosis of hypertension 583235241 R03.0 track WKLY BP's- f/u with results- Health Concerns Section Related Observation LastModified by Organization Detai ls LastModified Time None Recorded Concern Status LastModified by Organization Details LastModified Time None Recorded Advance Directives Directive None Recorded Payers Encounter Date Sequence Insurance Name Policy Number Policy Monteiro Covered Member ID Monteiro Member ID Guarantor Name 08/17/2023 2 [facility]: [employer] 104 Adolfo Calvinsean [id number] Sally Urff 08/17/2023 1 [place] [employer] Sally M Urff [id number] Sally Urff 11/11/2023 2 [facility]: [employer]EE [employer] 104 Adolfo Jcarlos Nikunjsean [id number] Sally Urff 11/11/2023 1 [place] [employer] Sally M Urff [id number] Sally Urff 12/16/2023 2 [facility]: [employer] 104 Adolfo Jcarlos Nikunjsean [id number] Sally Urff 12/16/2023 1 [place] Sally M Urff [id number] Sally Urff 02/07/2024 2 [facility]: [employer] 104 Adolfo Calvinsean [id number] Sally Urff 02/07/2024 1 [facility] [employer]ATIONAL [employer]MENT [employer] Sally M Urff [id number] Sally Urff 06/08/2024 2 [facility]: [employer]GRAM 104 Adolfo Calvinsean [id number] Sally Urff 06/08/2024 1 [place] [employer] Sally M Urff [id number] 5 Sally Urff Notes Date Note Type Note Provider Name and Address Organization Details Recorded Time 4 text/html pt presents for inpatient f/u from d/c 07/30/23, inpatient stay at [facility] 07/26 to 07/29/23. Patient admitted with Aortic stenosis, under went TAVR, ? regarding medications, no further specific concerns , no improvement in dyspnea, no chest pain, no palpitations,cytopathology technologist- visit yesterday. has sched vascular, pulmonary can CV, respdx 5 days ago, pseudoaneurysm- ultrasound- f/u imaging yesterday showing resolved.able to eat/ fluids, s/p surgery had pedal edema. pt notified by insurance that buprenorphine- in past had taken fentanyl- experienced agitation,pt conts to have pain, using oxycodone 10 mg tidhas constipation- using metamucil SHAMIKA Gamez [address] [place] [address], [phone], [place] [facility] 08/23/2023 20:51:28 4 text/html Controlled SubstanceReported bypatient.CSRP Contractcontract signedPhysical Exam/FemaleReported bypatient.PHAPatient is here for a Wellness Visit. She describes her health status as fair. Patient's health is the same as last year.Risk Assessment and Lifestyle Change Counseling (Medicare)Reported bypatient.Coronary Artery Disease Risk Assessment:Family History of Coronary Artery Disease; No personal history of diabetes; No history of peripheral vascular disease, AAA, or carotid disease; No personal history of coronary artery disease Breast Cancer Risk Assessment:Family history of breast cancer one first degree relative(Mother); No history of breast cancer or dcis Colon Cancer Risk Assessment:No family history of pre cancerous colon polyps or cancer Lung Cancer Risk Assessment:Has used cigarettes less than 30 pack years;Former smoker quit more than 15 years ago Fracture Risk Assessment:No unexplained fracture;Does not have adequate calcium intake;Not taking Vitamin D Cognitive/Behavioral Risk Assessment:Personal history of mental illness; No family history of mental illness; Do you or anyone else have concerns about your memory? yes Safety Risk Assessment:Has grab bars in bathroom;No rails on steps(no steps); No falls; No evidence of abuse/neglect; Do you feel safe in your current relationship?YES; Have you ever been a victim of physical/emotional/sexual abuse?NO Functional Status:Patient has trouble hearing the television or radio when others do not.(has hearing aid);Patient has to strain or struggle to hear/understand conversations.(has hearing aid);Patient needs help with preparing meals,transportation, shopping, taking medicines, managing finances, or other activities of daily living.;Patient has visual loss that interfers with daily activities; Does not live alone;Patient was unsteady or takes longer than 30 seconds during the timed get up and go test.; Patient reports no falls in the past 6 months. Diet:Counseled about appropriate portion size; Counseled about eating a diet low in trans and saturated fats and high in fiber, fruits and vegetables; Counseled about appropriate calcium intake and good dietary sources of calcium.; Counseled about the importance of maintaining a positive calcium balance and taking 1000 iu Vitamin D daily.; Counseled about decreasing carbohydrates Exercise counseling:Discussed the importance of daily physical activity; Discussed the importance of weight bearing exercise Safety:Counseled about protecting skin from the sun and lowering the risk of skin cancer; Counseled about avoiding excessive and unsafe alcohol intake; Counseled about use of helmets for high velocity activiities; Counseled about home safety including use of smoke detectors, CO detectors, keeping home water temperature less than 120; Counseled about use of seat belts; Counseled about fall risk from throw rugs and the need for hand rails on steps and in bathVMG HyperlipidemiaReported bypatient.Duration:chronic Control:treated with dietVMG HypertensionReported bypatient.Context:No ischemic heart disease; No kidney disease; No history of CVA; No congestive heart failure; No history of transient ischemic attacks; No peripheral vascular disease; No history of diabetes Control:BP Goal less than (130/80); Treated with diet and exercise; Treated with medications; Patient understands medications are to lower blood pressure Compliance:Compliant with medications; Compliant with follow-up visits;Noncompliant with diet;Noncompliant with exercise Barriers to Carehistory of depression Self Care:not doing home bp monitoring Associated Symptoms:No chest pain; No edema; No fatigue; No palpitations; No snoring;Decline in exercise capacity Ability to Manage Self CareOn how confident the patient feels in ability to self manage condition the patient selects 7 with 10 being very confident and 1 being very low confidence; Patient feels confident in ability to self manage conditionaVMG-Chronic Pain 2Reported bypatient.Duration:Pain is stable condition Context:Pain is due to degenerative joint disease; Patient has chronic low back pain Barriers to CareNo identified barriers to care Ability to Manage Self CarePatient confidence in ability to manage their condition 10 with 10 being very confident and 1 being not confident lucho Aggravating factors:lifting; bending lucho Alleviating factors:rest; cold Pain impacts on functionality:Patient is capable of the following activities pain free:nothing-pain free lying in bed but has pain with all activities ,;Pain interferes with sleep;Pain interferes with physical activity Location of PainBack pain; Leg pain Quality of Painsharp ache Pain assesment in last week 0 is no pain and 10 is pain as bad as it can bePain level on average in the last week 6; Pain level at its worst in the past week 6; Percentage of pain relieved in the past week 50% Side Effects from MedicationNo side effects from medication Providers Involved in Patient CarePatient has previously seen physical therapy,ortho,neuro in managing pain; Patient has not had conflicts with other medical providers about the use of pain medications; Patient has never had trouble controlling their use of any drug prescribed to them . ComorbiditiesPatient has never a problem with alcohol Ability to Manage Self CarePatient confidence in ability to manage their care 10 with 10 being very confident and 1 being not confident Time for intake: {{1 2 3 4 5 6 7 8 9 10 11 12* 13 14 15 16 17 18 19 2 0 21 22 23 24 25}} minutes.VV w/daughter cough in past wk SHAMIKA Gamez [address] [place] [address], [phone], [facility] 11/13/2023 21:34:47 4 text/html Here for f/u on BP-- home reading BP's 120, had weakness at time. SHAMIKA Gamez [address] [place] [address], [phone], [facility] 12/16/2023 16:36:15 4 text/html Pt here with daughter.Has been having some difficulty swallowing. Has been ongoing for a month -coughing while eating.Daughter notes gurgling when pt lying down. Has been worsening. States she has been wheezing. Has been having some SOB - using inhaler more often - pt reports occas taking more than 2 puffs at times. Hx COPD follwed by Arline perez.Uses O2 2-3l at hs Ela Juarez NP [address] [place], [phone], [facility] 02/10/2024 12:44:36 5 text/html aVMG-Chronic Pain 2Reported bypatient.Duration:Chronic pain began >5years ago; Pain is improving (doing pain mgmt) Context:Patient has chronic low back pain Barriers to Carehistory of depression Pain impacts on functionality:continuing eval with pain mgmt clinis Pt presents for med mgmt- discuss bone density- difficulty swallowing, has had dental work lately History of Present IllnessThe patient, with a history of kidney issues, high blood pressure, and lung problems,presents with a recent onset of difficulty swallowing. The patient describes the swallowing issue as requiring a lot of effort and occurring more frequently over the past month. The patient denies any choking sensation but does report a feeling of obstruction. The patient also reports fatigue, sleeping a lot during the day, and occasional dizziness, particularly when turning quickly. The patient's daughter notes that the patient has been sleeping a lotpt has had recent dental work.The patient denies any chest pain, racing heart, or significant shortness of breath. The patient is currently on several medications, including oxycodone, quetiapine, and Effexor, and uses an inhaler for lung issues. The patient also reports occasional heartburn, which is managed with omeprazole. SHAMIKA Gamez [address] [place] [address], [id number], [facility] 06/11/2024 10:23:02 OBGyn Episode No OBEpisode recorded.
--- OUTSIDE RECORDS SUMMARY | 2024-07-23 13:25 | XMS_ITS | Encounter Summary ---
Author Organization [facility], Address [address] [place] [address] Phone Care Team Providers Care Fuse Maker Name Role Phone Cristel Garzon Primary Care Provider [phone] Encounter Details Date Type Department Care Team (Late Contact Info) Description 06/29/2024 Documentation Only [facility] [address] [place] [address] [place] [address] [place] [phone] Social History Tobacco Use Types Packs/Day Years [...] Visit [facility] [place] [address] Lacy [place] [address] [place] [phone] Kevin Dennis MD [address] [place] [address] [place] [address] documented as of this encounter Visit Diagnoses Not on filedocumented in this encounter Care Teams Fuse Maker Relationship Specialty Start Date End Date Cristel Garzon PA [address] [place] [phone] PCP - General Physician Scale Tank Operator 06/27/24 documented as of this encounter
--- OUTSIDE RECORDS SUMMARY | 2024-07-23 13:25 | XMS_ITS | Continuity of Care Document ---
Author Organization [facility] Address [address] [place] [address] Phone Care Team Providers Care Hip Hop Artist Name Role Phone Field Neto FARRELL Unavailable [...] Charge Lumbosacral Spine 4+ Views OFFICE/OUTPATIENT VISIT, [facility] Advance Directives Directive Yes / No Effective Date File Name No Information Encounters Encounter Description Practice Location Reason(s) For Visit Diagnoses Date Provider Providers Copied on Encounter [facility], [address], [place], [place], [id number], [place] tel:[phone] [facility] No Information 0-201 1 [address]. [address], [address], [place], [place], [id number] , [place]. tel:[phone] [facility], [address], [place], [place], [id number], [place] tel:[phone] [facility] Spinal stenosis of lumbar region 2-201 1 [address] [place]. [address], [address], [place], [place], [id number] , [place]. tel:[phone] OFFICE/OUTPA TIENT VISIT, [facility], [address], [place], [place], [id number], [place] tel:[phone] [facility] back pain (chief complaint) BackacheLumbagoSpin al stenosis of lumbar regionRadiculitis, Thoracic or LumbarPostlaminecto my syndrome of lumbar region 0-201 1 [address] [place]. [address], [address], [place], [place], [id number] , [place]. [phone] Referring Provider: Neto Greene, [address], [place], [address] . tel:[phone] Family History Family Member Type Diagnosis Age [...]
== END 2024-07-23 12:07 | disposition home or self-care (01) ==
PROVIDERS: PCP Physician Assistant; Visit Provider Internal Medicine
DX: M54.50 Low back pain, unspecified (principal); G89.29 Other chronic pain; M96.1 Postlaminectomy syndrome, not elsewhere classified
CPT/HCPCS: 99213

== ENCOUNTER → 2024-07-23 11:36 | Outpatient (BNVA) | payer MEDICARE, BC, SELFPAY | PROVIDERS: PCP Physician Assistant; Visit Provider Internal Medicine | DX: M54.50 Low back pain, unspecified (principal); G89.29 Other chronic pain; M96.1 Postlaminectomy syndrome, not elsewhere classified | CPT/HCPCS: 99212 ==